=== PATIENT | female | born 1950 | race Caucasian/White ===

== ENCOUNTER 2016-11-01 11:05 | Inpatient (IN) | payer OTHER, MEDICAID ==
--- NOTE | 2016-11-01 11:25 | EDPHY ---
H & P Smoking Status: Never smoked Time Seen by Provider: 11/01/16 11:06 HPI/ROS: CHIEF COMPLAINT: Frequent falls, feeling weak , dizzy HISTORY OF PRESENT ILLNESS: 65-year-old female presents to the emergency department by ambulance after having 5 falls today. The patient has a history of multiple sclerosis however she is not taking a medication for this. She states that she felt very dizzy and weak today and has fallen multiple times. She states this is very abnormal for her. She is unsure if she hit her head. She complains of mild headache. She feels very dizzy and very tired. No reports of nausea or vomiting. No diarrhea. She states that she has been compliant with taking her medication. No fevers or chills. No chest pain or difficulty breathing. No other URI symptoms. REVIEW OF SYSTEMS: Constitutional: No fever, no chills. Eyes: No double or blurry vision. ENT: No sore throat. Respiratory: No cough, no shortness of breath. Cardiac: No chest pain. Gastrointestinal: No abdominal pain, vomiting or diarrhea. Genitourinary: No dysuria. Musculoskeletal: No neck or back pain. Skin: No rashes. Neurological: Mild headache (Tara Suarez) Past Medical/Surgical History: Multiple sclerosis, fibromyalgia, chronic pain on narcotics, hypothyroidism, anxiety, agoraphobia, PTSD, hospitalized 10/15/2016 with similar complaints of dehydration and weakness. (Tara Suarez) Social History: Single and lives alone (Tara Suarez) Physical Exam: General Appearance: Alert, no distress. 111/81, heart rate 109, respirations 14 , 97% on room air, temperature 36.8. No visible signs of trauma to her head. She points to the occiput of her scalp as her source of pain thinking this is where she hit her head. Eyes: Pupils equal and round. Extraocular motions are all intact. ENT: Mouth: Mucous membranes dry Respiratory: No wheezing, rhonchi, or rales, lungs are clear to auscultation. Cardiovascular: Regular rate and rhythm. Gastrointestinal: Abdomen is soft and nontender, no masses, no rebound or guarding, bowel sounds normal. Neurological: Alert and oriented x 3, cranial nerves II through XII grossly intact Skin: Warm and dry, no rashes. Musculoskeletal: Nontender to palpate along the cervical, thoracic or lumbar spine. Neck is supple. Extremities: Full range of motion and no peripheral edema. Her gait is not tested. Psychiatric: Patient is oriented X 3, there is no agitation. (Tara Suarez) Constitutional: Initial Vital Signs Temperature (C) 36.8 C 11/01/16 11:05 Heart Rate 109 H 11/01/16 11:05 Respiratory Rate 14 11/01/16 11:05 Blood Pressure 111/81 H 11/01/16 11:05 O2 Sat (%) 97 11/01/16 11:05 O2 Delivery Mode Room Air Allergies/Adverse Reactions: buspirone HCl [From BuSpar] Allergy (Mild, Verified 04/08/16 23:16) rash on chest morphine Allergy (Mild, Verified 04/08/16 23:16) legs/feet swell oxycodone [Oxycodone] Allergy (Mild, Verified 04/08/16 23:16) feet/legs swell propoxyphene HCl [From Darvon] Allergy (Mild, Verified 04/08/16 23:16) GI upset propranolol [Propranolol] Allergy (Mild, Verified 04/08/16 23:16) "headache and heart pounding" Sulfa (Sulfonamide Antibiotics) [Sulfa(Sulfonamide Antibiotics)] Allergy (Mild, Verified 04/08/16 23:16) GI upset ivp dye Allergy (Severe, Uncoded 04/08/16 23:16) rash/dyspnea Home Medications: Medication Instructions Recorded Benztropine Mesylate [Cogentin (*)] 1 mg PO BID 11/01/16 Clotrimazole 1% [Lotrimin 1%] 1 leonid TP BID 11/01/16 Fluconazole [Diflucan (*)] 150 mg PO DAILY 11/01/16 LORazepam [Ativan (*)] 0.5 mg PO QID PRN 11/01/16 Levothyroxine [Synthroid 88 mcg 88 mcg PO DAILY06 11/01/16 (*)] Nystatin [Nyamyc] 1 leonid TP BID 11/01/16 PARoxetine HCL [Paxil 20mg (*)] 20 mg PO DAILY 11/01/16 Tobramycin/Dexameth [Tobradex opht 1 - 2 drops EACHEYE Q4 11/01/16 drops (*)] ZOLPIDEM TARTRATE [Ambien CR 12.5 12.5 mg PO HS 11/01/16 mg] Ergocalciferol (Vitamin D2) 50,000 unit PO QS #8 capsule 11/02/16 [Vitamin D2] Medical Decision Making - Diagnostics EKG Interpretation: 12 lead EKG is interpreted in Trace master View by emergency department physician. It shows sinus rhythm with a rate of 99. There is right axis deviation. No acute ischemic changes. (Cathy Monge) ED Course/Re-evaluation: 65-year-old female presents to the emergency department with history of frequent falls. The patient manages her own medications. She has been falling frequently today. Laboratory studies are unremarkable. CT imaging of her brain is normal. I explained to the patient that it is possible that she is over medicating herself. She was admitted to the hospital just 2 weeks ago with similar complaints. She was evaluated by PT and OT at that time. She will have home health twice a week that will start next week. (Tara Suarez) Differential Diagnosis: Weakness including but not limited to electrolyte abnormality, depression, anxiety, CVA, spinal cord abnormality, and infectious causes. (Tara Suarez) Other Provider: The patient was evaluated and managed by the physician assistant men's soccer coach. I have reviewed this chart and I agree with the findings and plan of care as documented , as indicated by my signature. I am the secondary supervising physician. ( Cathy Monge) - Data Points Medications Given: Discontinued Medications Benztropine Mesylate (Cogentin) 1 mg PO BID SAM Stop: 04/30/17 20:59 Last Admin: 11/02/16 08:38 Dose: 1 mg Clotrimazole (Lotrimin 1%) 1 leonid TP BID SAM Stop: 12/01/16 20:59 Last Admin: 11/02/16 08:39 Dose: 1 leonid Sodium Chloride (Ns) 1,000 mls @ 0 mls/hr IV EDNOW ONE PRN Reason: Wide Open Stop: 11/01/16 11:46 Last Admin: 11/01/16 11:45 Dose: 1,000 mls Sodium Chloride (Ns) 1,000 mls @ 100 mls/hr IV CONT SAM Stop: 11/02/16 02:59 Last Admin: 11/02/16 02:07 Dose: 1,000 mls Levothyroxine Sodium (Synthroid) 88 mcg PO DAILY06 SAM Stop: 05/01/17 05:59 Last Admin: 11/02/16 04:46 Dose: 88 mcg Lorazepam (Ativan) 0.5 mg PO QID PRN PRN Reason: Anxiety Stop: 04/30/17 19:01 Last Admin: 11/01/16 21:25 Dose: 0.5 mg Nystatin (Mycostatin Powder) 1 leonid TP BID SAM Stop: 12/01/16 20:59 Last Admin: 11/02/16 08:39 Dose: 1 leonid Paroxetine HCl (Paxil) 20 mg PO DAILY SAM Stop: 05/01/17 08:59 Last Admin: 11/02/16 08:38 Dose: 20 mg Temazepam (Restoril) 15 mg PO HS PRN PRN Reason: Sleep/Insomnia Stop: 04/30/17 23:35 Last Admin: 11/01/16 23:50 Dose: 15 mg Tobramycin/Dexamethasone (Tobradex) 1 - 2 drops EACHEYE Q4 SAM Stop: 12/01/16 21:59 Last Admin: 11/02/16 10:50 Dose: 1 drop Zolpidem Tartrate (Ambien) 10 mg PO HS SAM Stop: 04/30/17 20:59 Last Admin: 11/01/16 21:15 Dose: 10 mg Departure - Departure Disposition: [facility] Acute Clinical Impression: Generalized weakness, History of multiple sclerosis, Frequent falls Condition: Fair
[2016-11-01 11:33] LABS: % IMMATURE GRANULYOCYTES 0.9 % (0.0-1.1); ABSOLUTE IMMATURE GRANULOCYTES 0.09 10^3/uL (0.00-0.10); ADD DIFF? NO; ADD MORPH? NO; ADD SCAN? NO; ATYPICAL LYMPHOCYTE FLAG 0 (0-99); FRAGMENT RBC FLAG 0 (0-99); HEMATOCRIT 36.7 % (38.0-47.0); HEMOGLOBIN 12.8 g/dL (12.6-16.3); LEFT SHIFT FLG 0 (0-99); LIPEMIA HEMOLYSIS FLAG 90 (0-99); MEAN CELL HEMOGLOBIN 30.3 pg (27.9-34.1); MEAN CELL HEMOGLOBIN CONCENTR. 34.9 g/dL (32.4-36.7); MEAN CELL VOLUME 86.8 fL (81.5-99.8); MEAN PLATELET VOLUME 8.5 fL (8.7-11.7); PLATELET CLUMPS FLAG 0 (0-99); PLATELET COUNT 231 10^3/uL (150-400); RED BLOOD CELL COUNT 4.23 10^6/uL (4.18-5.33)
--- NOTE | 2016-11-01 11:35 | CPEKG ---
Heart Rate: 99 RR Interval: 606 P-R Interval: 204 QRSD Interval: 80 QT Interval: 356 QTC Interval: 457 P Cope: 58 QRS Cope: 95 T Wave Cope: 45 EKG Severity - OTHERWISE NORMAL ECG - EKG Impression: SINUS RHYTHM EKG Impression: RIGHT AXIS DEVIATION Electronically Signed By: Cathy Monge 01-Nov-2016 15:21:06
[2016-11-01] MEDS ORDERED: NS 1,000 ML IV ONE (11:45)
[2016-11-01 11:47] LABS: ANION GAP 13 mEq/L (8-16); CALCIUM 8.9 mg/dL (8.5-10.4); CARBON DIOXIDE 24 mEq/l (22-31); CHLORIDE 100 mEq/L (97-110); CREATININE 1.1 mg/dL (0.6-1.0); GLOMERULAR FILTRATION RATE 50; GLUCOSE 104 mg/dL (70-100); POTASSIUM 4.1 mEq/L (3.5-5.2); SODIUM 137 mEq/L (134-144)
[2016-11-01 11:54] LABS: COLOR PALE YELLOW; LEUKOCYTE ESTERASE,URINE NEGATIVE (NEGATIVE); NITRITE,URINE NEGATIVE (NEGATIVE)
[2016-11-01 11:57] LABS: TROPONIN I < 0.012 ng/mL (0-0.034)
[2016-11-01 12:05] LABS: MUCUS TRACE /lpf (NONE-1+)
--- NOTE | 2016-11-01 13:03 | CT ---
CT Brain (Without Contrast) 1240 hours History: Head Trauma, hit back of head, on Plavix. Multiple sclerosis. Comparison: MRI brain March 2016. Technique: Axial computed tomographic images of the brain without contrast. Dose reduction techniques were utilized. Findings: Ventricles, cisterns, and sulci are widened consistent with atrophy. No hydrocephalus, mid line shift/herniation, or epidural/subdural hematomas. No acute intraparenchymal hemorrhage or mass e ffect. Cerebrovascular atherosclerosis. Hypodensities in the white matter of bilateral cerebral hemis pheres. Bone windows demonstrate no displaced fractures. Paranasal sinuses and mastoid air cells are clear. Impression: 1. Moderate atrophy. 2. No acute hemorrhage, hydrocephalus, or mass effect. 3. Cerebrovascular atherosclerosis. 4. No definite acute infarct. 5. Nonspecific white matter lesions which may represent multiple sclerosis or Microvascular ischemic gliosis. 6. No epidural or subdural hematoma. Findings and recommendations discussed with Emergency Department physician, Tara Suarez PA-C, at 1 255 hours today. Final report concurs with initial preliminary interpretation.
[2016-11-01] MEDS ORDERED: ONDANSETRON 4 MG/2 ML VIAL IVP PRN (13:53)
[2016-11-01] MEDS ORDERED: ACETAMINOPHEN 325 MG TAB PO PRN (13:53)
[2016-11-01] MEDS ORDERED: ONDANSETRON DISINTEGRATING 4 MG TAB PO PRN (13:53)
--- NOTE | 2016-11-01 16:09 | GHP ---
[f rep st] HISTORY AND PHYSICAL DATE OF ADMISSION: 11/01/2016 CHIEF COMPLAINT: Falls, weakness. PRIMARY PCP: Manuela De Oliveira MD, [facility]. HISTORY OF PRESENT ILLNESS: Patient is a 65-year-old female with history of multiple sclerosis, tremors and history of seizure disorder, presenting with 5 falls this morning. She attributes the falls due to progressive weakness over the last 3 weeks. During one of the falls, she tried to sit herself down and hit the back of her head against the wall. Her legs felt shaky and weak underneath her. She denies any prodromal symptoms of chest pain, shortness of breath, nausea, vomiting, or dizziness. She reports a tremor for the past 2 months. It initially started in her hands or feet and then encompassed her whole body. She is being followed by [facility], and they started her on a new medication. Unclear what this medication is, will contact her pharmacy. She actually thought the tremor was better this morning, and then had these falls. Had seizures diagnosed in February of 2015 and was on several medications, including Tegretol and Keppra. She was taken off these medications approximately 3-4 weeks ago, possibly due to causing the tremor. She has not had any seizures since that time. The patient was hospitalized October 15, 2016, for similar symptoms. At that time, a psychiatric consult was obtained, and she was started on Abilify and Paxil increased to 30 mg daily. There was consideration for inpatient psychiatry, but this was not recommended. She states that she has been having increased anxiety with recent hospitalization. REVIEW OF SYSTEMS: I completed a 10-point review of system. PAST MEDICAL HISTORY: 1. MS diagnosed in 1993, previously taking Copaxone. 2. Tremor for the past 2-3 months. 3. Seizure disorder, initially in February 2015, but has been off medications for 3- 4 weeks. 4. Major depression disorder with psychotic features. 5. Agoraphobia. 6. Post-traumatic stress disorder. 7. Hypothyroidism. SURGICAL HISTORY: She denies. SOCIAL HISTORY: Lives alone in an apartment with her dog here in [place]. Has friends but no family here. No illicit drugs or alcohol. MEDICATIONS: Pharmacy to reconcile. FAMILY HISTORY: Brother with diabetes. Father with an CO at age 47. Mom with lung cancer. ALLERGIES: Buspar, morphine, oxycodone, Darvon, propranolol, sulfas, IV contrast. PHYSICAL EXAMINATION: VITAL SIGNS: Temperature 36.8, blood pressure 111/81, heart rate 109, respiration 14, 97% on room air. GENERAL: Very fatigued appearing, soft-spoken. HEENT: PERRLA, EOMI. Oropharynx clear. NECK: No cervical lymphadenopathy. HEART: Regular rate and rhythm. No murmurs, gallops , or rubs. LUNGS: Clear to auscultation. ABDOMEN: Soft, nontender, nondistended. Positive bowel sounds. : No suprapubic or CVA tenderness. MUSCULOSKELETAL: 4/5 hip flexion and extension on left lower extremity. 5/5 upper left and right extremities. Normal sensation to light touch. Negative Babinski. A rest tremor of the upper extremities. PSYCH: Alert and oriented x3. Flat affect. LABS: WBCs 9, hemoglobin 12, hematocrit 37, platelets 231. Sodium 137, potassium 4.1, chloride 100, carbon dioxide 24, creatinine 1.1 (baseline 0.8 to 0.9), glucose 104. Troponin less than 0.012. TSH 9.0. EKG personally reviewed by me. Normal sinus rhythm. Right axis deviation. ST flattening in 3. CT head: Moderate atrophy. No acute hemorrhage, hydrocephalus or mass effect. Nonspecific white matter lesions which may represent multiple sclerosis or microvascular ischemic gliosis. ASSESSMENT/PLAN: 1. Multiple mechanical falls. This is likely multifactorial. Patient with underlying multiple sclerosis as well as decreased p.o. intake and suspected failure to thrive. She denies any prodromal symptoms to suggest a cardiac etiology. Troponin and EKG are negative. Will monitor on telemetry. Will have physical therapy and occupational therapy evaluate the patient. Will also have Neurology consult. Check B12, folate and vitamin D levels. 2. History of major depressive disorder with psychotic features. Continue Abilify and Paxil. 3. History of seizure disorder. This is per patient report. She is currently not on any medications. 4. Hypothyroidism. TSH has improved to 9. Would recheck in 2 more weeks and consider up titration. 5. Diet: Regular. 6. Deep vein thrombosis prophylaxis: SCDs. 7. Disposition: Patient warrants inpatient admission given recurrent falls, PT /OT and a Neurology evaluation. /[id number]/MODL MTDD
[2016-11-01] MEDS: NS 1,000 ML IV SCH (16:31)
[2016-11-01 17:04] LABS: FOLATE SERUM 12.9 ng/mL (2.80 - >20.00)
[2016-11-01] MEDS ORDERED: LORazepam 0.5 MG TAB PO PRN (19:02)
[2016-11-01] MEDS ORDERED: ZOLPIDEM TARTRATE 5 MG TAB PO SCH (21:00)
[2016-11-01] MEDS: BENZTROPINE MESYLATE 1 MG TAB PO SCH (21:15)
[2016-11-01] MEDS: TOBRAMYCIN/DEXAMETH 5 ML OPHT.BTL EACHEYE SCH (21:17)
[2016-11-01] MEDS: CLOTRIMAZOLE 1% 15 GM CRTUBE TP SCH (21:20)
[2016-11-01] MEDS: NYSTATIN POWDER 15 GM BTL TP SCH (21:22)
[2016-11-01] MEDS ORDERED: TEMAZEPAM 15 MG CAP PO PRN (23:36)
[2016-11-02] MEDS: NS 1,000 ML IV SCH (02:07)
[2016-11-02] MEDS: TOBRAMYCIN/DEXAMETH 5 ML OPHT.BTL EACHEYE SCH ×3 (02:08→10:50)
[2016-11-02 05:46] LABS: ANION GAP 10 mEq/L (8-16); CALCIUM 8.9 mg/dL (8.5-10.4); CARBON DIOXIDE 23 mEq/l (22-31); CHLORIDE 106 mEq/L (97-110); CREATININE 0.9 mg/dL (0.6-1.0); GLOMERULAR FILTRATION RATE > 60; GLUCOSE 97 mg/dL (70-100); POTASSIUM 4.1 mEq/L (3.5-5.2); SODIUM 139 mEq/L (134-144)
[2016-11-02] MEDS ORDERED: LEVOTHYROXINE 88 MCG TAB PO SCH (06:00)
[2016-11-02 08:24] VITALS: BP 115/73; RESP 16
[2016-11-02] MEDS: BENZTROPINE MESYLATE 1 MG TAB PO SCH (08:38)
[2016-11-02] MEDS: CLOTRIMAZOLE 1% 15 GM CRTUBE TP SCH (08:39)
[2016-11-02] MEDS: NYSTATIN POWDER 15 GM BTL TP SCH (08:39)
[2016-11-02] MEDS ORDERED: PARoxetine HCL 20 MG TAB PO SCH (09:00)
--- NOTE | 2016-11-02 09:59 | PDCONSULT ---
Fixture Maker Note: HOSPITAL NEUROLOGY CONSULT REQUESTING: Amanda Pinzon MD REASON: Falls HPI: This is a 65-year-old right-handed woman with a history of multiple sclerosis, fibromyalgia, anxiety and depression with agarophobia, PTSD who presented to our facility yesterday due to multiple falls. Patient is a marginal historian, but reports yesterday she was entertaining guests in her home. She generally uses a walker for ambulation assistance, but states that yesterday she had so much going on with entertaining her guests that she abandoned the walker for better mobility. She states that she subsequently had 5 falls. She cannot identify if there was any mechanical component to this. She does not think she was weak in the extremities. She identifies that she has had a tremor in the arms and legs for 2-3 months and states that she thinks the tremor has made her fall. She also thinks that she was moving around too quickly and this resulted in imbalance and falls. Otherwise, I do not get a good sense of the mechanism of her falls. ROS: As per the HPI, otherwise a complete 12 point ROS was performed and is negative ALLERGIES AND MEDS: As recorded in the EMR - reviewed and reconciled PFSH: As per the intake H&P by Dr. Pinzon from November 01, 2016 EXAM: GEN: thin woman laying in NAD HEENT: NCAT, sclera anicteric, conjunctiva not injected, MMM, oropharynx clear, no scalp tenderness NECK: supple, nontender, no meningismus CV: RRR s1 s2 wo m/r/c/g. Carotid pulses 2+ wo bruit NEURO: MS: awake, alert, oriented to all spheres. Speech nondysarthric. No language disturbance. Follows commands. Attends to both sides. Episodic memory impairment evident on casual conversation. Mood anxious. Adequate fund of knowledge. Poor insight. CN: pupils 3mm round and reactive. Fundi with sharp discs. VFF. Primary gaze centered. Full ocular motility with saccadic intrusion on smooth pursuit. Facial sensation preserved. Face symmetric. Palatoglossal movements intact. Shoulder shrug and head turn strong. MOTOR: reduced bulk, normal tone. Subtle fine postural tremor in all extremities, arms>legs without intention worsening. Full power throughout. SENSORY: intact LT/PP. No extinction. COORD: no ataxia FN/HS. Noe preserved. REFLEX: plantars down. No clonus. DTRS 2+/4. GAIT: rises unassisted. She has a cautious gait with her walker. On standing unassisted, tremor in the legs becomes quite apparent. On unloading her weight on the walker, the tremor resolves. DATA: Labs reviewed in EMR CT head wo from 11/01/16 reviewed - global volume loss, periventricular hypodensities consistent with her history of MS and/or chronic microvascular ischemic changes. Nothing acute. IMPRESSION AND RECOMMENDATIONS: // FALLS // ORTHOSTATIC TREMOR Patient presents with multiple falls of unclear origin, though, given the scant history they may be from her abandoning her walker. She does have an orthostatic tremor in the legs, which can cause negative myoclonus and falls. I would advise she continue to use her walker 100% of the time with ambulation, as unloading her weight on the walker can resolve the tremor. In the event the tremor continues to be a problem, low dose levetiracetam or low dose clonazepam can improve the tremors, as well. She can followup in our clinic as previously recommended and followup with her home care providers.
[2016-11-02 11:30] VITALS: PULSE 101; TEMP 98.6; O2SAT 93
--- NOTE | 2016-11-02 13:39 | PDIAF ---
- Diagnosis Code Status: Full Code - Medication Management Discharge Medications: Medications to Continue on Transfer Benztropine Mesylate [Cogentin (*)] 1 mg PO BID 11/01/16 [Last Taken Unknown] Clotrimazole 1% [Lotrimin 1%] 1 leonid TP BID 11/01/16 [Last Taken Unknown] Fluconazole [Diflucan (*)] 150 mg PO DAILY 11/01/16 [Last Taken Unknown] LORazepam [Ativan (*)] 0.5 mg PO QID PRN 11/01/16 [Last Taken Unknown] Levothyroxine [Synthroid 88 mcg (*)] 88 mcg PO DAILY06 11/01/16 [Last Taken 08/08] Nystatin [Nyamyc] 1 leonid TP BID 11/01/16 [Last Taken Unknown] PARoxetine HCL [Paxil 20mg (*)] 20 mg PO DAILY 11/01/16 [Last Taken Unknown] Tobramycin/Dexameth [Tobradex opht drops (*)] 1 - 2 drops EACHEYE Q4 11/01/16 [ Last Taken Unknown] ZOLPIDEM TARTRATE [Ambien CR 12.5 mg] 12.5 mg PO HS 11/01/16 [Last Taken Unknown ] Discharge Medications: Refer to the Discharge Home Medication list for PRN reason. - Orders Services needed: Home Care, Registered Nurse, Certified Typewriter Assembler Home Care Face to Face: I certify that this patient was under my care and that I had the required [id number] encounter meeting the encounter requirements on the discharge day. My findings support the fact that the patient is homebound as defined in CMS Chapter 7 Medicare Benefits Manual 30.1.1, The condition of the patient is such that there exists a normal inability to leave home and consequently, leaving home would require a considerable and taxing effort. - Follow Up Care Current Providers and Referrals: IN STATE,. [Primary Care Provider] - Carmine Hernandez DO [Doctor of Osteopathy] -
--- NOTE | 2016-11-02 14:27 | PDIAF ---
- Diagnosis Code Status: Full Code - Medication Management Discharge Medications: Medications to Continue on Transfer Benztropine Mesylate [Cogentin (*)] 1 mg PO BID 11/01/16 [Last Taken Unknown] Clotrimazole 1% [Lotrimin 1%] 1 leonid TP BID 11/01/16 [Last Taken Unknown] Fluconazole [Diflucan (*)] 150 mg PO DAILY 11/01/16 [Last Taken Unknown] LORazepam [Ativan (*)] 0.5 mg PO QID PRN 11/01/16 [Last Taken Unknown] Levothyroxine [Synthroid 88 mcg (*)] 88 mcg PO DAILY06 11/01/16 [Last Taken 08/08] Nystatin [Nyamyc] 1 leonid TP BID 11/01/16 [Last Taken Unknown] PARoxetine HCL [Paxil 20mg (*)] 20 mg PO DAILY 11/01/16 [Last Taken Unknown] Tobramycin/Dexameth [Tobradex opht drops (*)] 1 - 2 drops EACHEYE Q4 11/01/16 [ Last Taken Unknown] ZOLPIDEM TARTRATE [Ambien CR 12.5 mg] 12.5 mg PO HS 11/01/16 [Last Taken Unknown ] Ergocalciferol (Vitamin D2) [Vitamin D2] 50,000 unit PO QS #8 capsule 11/02/16 [ Last Taken Unknown] Discharge Medications: Refer to the Discharge Home Medication list for PRN reason. - Orders Services needed: Home Care, Registered Nurse (med management), Certified Water Resource Engineering Specialist (ADLs assistance, 1-2 x daily, you can assess needs), Physical Therapy, Occupational Therapy Home Care Face to Face: I certify that this patient was under my care and that I had the required [id number] encounter meeting the encounter requirements on the discharge day. My findings support the fact that the patient is homebound as defined in CMS Chapter 7 Medicare Benefits Manual 30.1.1, The condition of the patient is such that there exists a normal inability to leave home and consequently, leaving home would require a considerable and taxing effort. Diet Texture: Regular Texture Diet - Follow Up Care Current Providers and Referrals: IN STATE,. [Primary Care Provider] - Carmine Hernandez DO [Doctor of Osteopathy] -
--- NOTE | 2016-11-02 14:27 | PDIAF ---
- Diagnosis Code Status: Full Code - Medication Management Discharge Medications: Medications to Continue on Transfer Benztropine Mesylate [Cogentin (*)] 1 mg PO BID 11/01/16 [Last Taken Unknown] Clotrimazole 1% [Lotrimin 1%] 1 leonid TP BID 11/01/16 [Last Taken Unknown] Fluconazole [Diflucan (*)] 150 mg PO DAILY 11/01/16 [Last Taken Unknown] LORazepam [Ativan (*)] 0.5 mg PO QID PRN 11/01/16 [Last Taken Unknown] Levothyroxine [Synthroid 88 mcg (*)] 88 mcg PO DAILY06 11/01/16 [Last Taken 08/08] Nystatin [Nyamyc] 1 leonid TP BID 11/01/16 [Last Taken Unknown] PARoxetine HCL [Paxil 20mg (*)] 20 mg PO DAILY 11/01/16 [Last Taken Unknown] Tobramycin/Dexameth [Tobradex opht drops (*)] 1 - 2 drops EACHEYE Q4 11/01/16 [ Last Taken Unknown] ZOLPIDEM TARTRATE [Ambien CR 12.5 mg] 12.5 mg PO HS 11/01/16 [Last Taken Unknown ] Ergocalciferol (Vitamin D2) [Vitamin D2] 50,000 unit PO QS #8 capsule 11/02/16 [ Last Taken Unknown] Discharge Medications: Refer to the Discharge Home Medication list for PRN reason. - Orders Services needed: Home Care, Registered Nurse (med management), Certified Microelectronics Engineer (ADLs assistance, 1-2 x daily, you can assess needs), Physical Therapy Home Care Face to Face: I certify that this patient was under my care and that I had the required [id number] encounter meeting the encounter requirements on the discharge day. My findings support the fact that the patient is homebound as defined in CMS Chapter 7 Medicare Benefits Manual 30.1.1, The condition of the patient is such that there exists a normal inability to leave home and consequently, leaving home would require a considerable and taxing effort. Diet Texture: Regular Texture Diet - Follow Up Care Current Providers and Referrals: [place] STATE,. [Primary Care Provider] - Carmine Hernandez DO [Doctor of Osteopathy] -
--- NOTE | 2016-11-02 14:33 | GDS ---
[f rep st] DISCHARGE SUMMARY DISCHARGE DIAGNOSES: 1. Multiple sclerosis. 2. Fibromyalgia. 3. Anxiety. 4. Depression. 5. Agoraphobia. 6. Posttraumatic stress disorder. 7. Mechanical falls. 8. Vitamin D deficiency. 9. Orthostatic tremor. 10. History of seizure disorder diagnosed February 2015. 11. Hypothyroidism. HPI: Patient is a 65-year-old female with history of multiple sclerosis, tremors, and history of sei zure disorder, presented with 5 mechanical falls day of admission. She attributes the falls due to p rogressive weakness over the last 3 weeks. She states that she is almost 100% compliant with her wal ker, but during 1 of falls yesterday she tried to sit herself down and hit the back of her head again st the wall. Her legs felt shaking and weak underneath her. She denied any prodromal symptoms of ch est pain, shortness of breath, nausea vomiting, or dizziness. She reports tremor for the past 2 months, initially starting in her hands and feet, then encompassed her whole body. She is being followed by [facility]. She actually felt the tremor was be tter the morning of admission, but then had these falls. She had been on several medications for sei zures diagnosed in february 2015, including Tegretol and Keppra, but these were discontinued over the pas t month thought to causing her tremor. She has not had any seizures since February of 2015. Patient was hospitalized October 15 for similar symptoms. At that time, a psychiatric consult was obtained. She was started on Abilify and Paxil. There was a consideration for inpatient psychiatr y, but this was not recommended. HOSPITAL COURSE BY PROBLEM: 1. Mechanical falls: This is likely secondary to orthostatic tremor and not being compliant with h er walker 100% of the time. Appreciate Neurology consult. They will see her in clinic. If orthosta tic tremor is persistent, they can try low-dose Keppra or clonazepam as these can improve symptoms. Patient was evaluated by PT/OT, who recommended home care. She will have both home care and home car e-based services. I did express my concern to the patient going home alone however, she was adamant and stated that she wanted to go home, so she will discharge. 2. Multiple sclerosis: Has been off medications for several years. 3. Hypothyroidism: Her levothyroxine was recently uptitrated to 88 mcg 2 weeks ago. There has been improvement and TSH is now 9. Would recommend repeat in 2 weeks and then likely adjust at that time . 4. Vitamin D deficiency: Level was 17. I started her on ergocalciferol weekly. This should be repe ated in 1-2 months. 5. Anxiety/depression: Continue home medications. DISPOSITION: Patient is stable for discharge. FOLLOWUP: 1. Manuela De Oliveira. 2. Repeat TSH in 2-4 weeks. 3. Vitamin D level in 1 month. 4. Follow up with her psychologist. 5. Establish care with Dr. Hernandez in Neurology [facility]. /[id number]/MODL
== END 2016-11-02 15:59 | disposition home health service (06) | DRG 92 ==
LOC: EDUNIT# → OBSVTOIN 13:53 → F3E 15:05
PROVIDERS: ADMIT Internal Medicine; ATTEND Internal Medicine
DX: G25.1 Drug-induced tremor (principal); G25.3 Myoclonus; R29.6 Repeated falls; T42.5X5 Adverse effect of mixed antiepileptics; Z91.19 Patient's noncompliance with other medical treatment and regimen; G35 Multiple sclerosis; F40.00 Agoraphobia, unspecified; F43.10 Post-traumatic stress disorder, unspecified; F33.9 Major depressive disorder, recurrent, unspecified; F41.9 Anxiety disorder, unspecified; E03.9 Hypothyroidism, unspecified; E55.9 Vitamin D deficiency, unspecified; G40.909 Epilepsy, unspecified, not intractable, without status epilepticus
CPT/HCPCS: 82607-90; 97161-GP; 97166-GO; G8978-GP-CJ; G8979-GP-CI; G8987-GO-CI; G8988-GO-CI

== ENCOUNTER 2016-11-30 13:21 | Inpatient (IN) | payer OTHER, MEDICAID ==
--- NOTE | 2016-11-30 14:04 | EDPHY ---
H & P Stated Complaint: conmfusion Time Seen by Provider: 11/30/16 13:28 HPI/ROS: CHIEF COMPLAINT: Fall, confusion HISTORY OF PRESENT ILLNESS: This is a 65-year-old female with history of multiple sclerosis, fibromyalgia, hypothyroidism, major depression, seizure disorder, an agraphobia who presents via EMS after a fall this morning. On my history the patient reports that she fell and that she has been feeling quite poorly today with generalized nausea and fatigue. Patient was admitted to the hospital in November 01 after having multiple falls. At that time she was discharged home with home health assistance. She tells me that this is her 1st fall since her prior admission. She reports a mechanical fall, tripping over a toy a that the neighbors child had. However, the patient is very hesitant in her history and it is unclear to me how reliable this history is. She denies any fevers or chills. She denies chest pain, shortness of breath, palpitations , vomiting, diarrhea. She does report urinary hesitancy as well as incontinence. Reports a mild headache. States she struck her right elbow when she fell and was able to get up and ambulate afterwards. Patient arrived via EMS. Per EMS she was oriented to 1 on their initial contact. Review of systems is limited secondary to the patient's clinical condition, somewhat altered mental status. PAST MEDICAL HISTORY: Multiple sclerosis, tremor, seizure disorder, major depression, agoraphobia, hypothyroidism SOCIAL HISTORY: Patient is currently living in her apartment. There is no family in the area. VITAL SIGNS Reviewed by me. GENERAL: Thin, well cared for. Resting comfortably. Dry mucous membranes and complains of a dry mouth. HEENT: Atraumatic. Eyes: No icterus, no injection. LAMAR, EOMI, no nystagmus. Mouth: Dry lips, dry mucous membranes. No erythema or lesions. Neck: supple with no adenopathy. Reports some tenderness diffusely on palpation. LUNGS: Clear to auscultation bilaterally, no wheezes, rhonchi or rales. CARDIAC: Regular rate and rhythm, no rubs, murmurs or gallops. ABDOMEN: Soft, nontender, nondistended, bowel sounds normal. BACK: No CVA tenderness. EXTREMITIES: No edema. Range of motion is normal throughout. I see no trauma on the right elbow. Bilateral knees have superficial abrasions. NEURO: Alert and oriented, oriented to person, place, believes it is December, and Jeffrey Savage is president. Occasionally answers questions inappropriately. Cranial nerves 2-12 are intact. Motor strength 5/5 throughout. Sensation intact to light touch. SKIN: Warm and dry, no rash. PSYCHIATRIC: No agitation. - Personal History Current Tetanus/Diphtheria Vaccine: Unsure Current Tetanus Diphtheria and Acellular Pertussis (TDAP): Unsure Tetanus Vaccine Date: 2014 - Medical/Surgical History Hx Asthma: Yes Hx Chronic Respiratory Disease: No Hx Diabetes: No Hx Cardiac Disease: No Hx Renal Disease: No Hx Cirrhosis: No Hx Alcoholism: No Hx HIV/AIDS: No Hx Splenectomy or Spleen Trauma: No Other PMH: fibromyalgia, MS, ibs; depression; anxiety; hypothyhroidism; ptsd; acid reflux; rhinitis, urine incontinence, seizure - Social History Smoking Status: Never smoked Constitutional: Initial Vital Signs Temperature (C) 36.9 C 11/30/16 13:24 Heart Rate 101 H 11/30/16 13:24 Respiratory Rate 20 11/30/16 13:24 Blood Pressure 153/74 H 11/30/16 13:24 O2 Sat (%) 98 11/30/16 13:24 O2 Delivery Mode Room Air Allergies/Adverse Reactions: buspirone HCl [From BuSpar] Allergy (Mild, Verified 04/08/16 23:16) rash on chest morphine Allergy (Mild, Verified 04/08/16 23:16) legs/feet swell oxycodone [Oxycodone] Allergy (Mild, Verified 04/08/16 23:16) feet/legs swell propoxyphene HCl [From Darvon] Allergy (Mild, Verified 04/08/16 23:16) GI upset propranolol [Propranolol] Allergy (Mild, Verified 04/08/16 23:16) "headache and heart pounding" Sulfa (Sulfonamide Antibiotics) [Sulfa(Sulfonamide Antibiotics)] Allergy (Mild, Verified 04/08/16 23:16) GI upset ivp dye Allergy (Severe, Uncoded 04/08/16 23:16) rash/dyspnea Home Medications: Medication Instructions Recorded Benztropine Mesylate [Cogentin (*)] 1 mg PO BID 11/01/16 Clotrimazole 1% [Lotrimin 1%] 1 leonid TP BID 11/01/16 Fluconazole [Diflucan (*)] 150 mg PO DAILY 11/01/16 LORazepam [Ativan (*)] 0.5 mg PO QID PRN 11/01/16 Nystatin [Nyamyc] 1 leonid TP BID 11/01/16 PARoxetine HCL [Paxil 20mg (*)] 20 mg PO DAILY 11/01/16 Tobramycin/Dexameth [Tobradex opht 1 - 2 drops EACHEYE Q4 11/01/16 drops (*)] ZOLPIDEM TARTRATE [Ambien CR 12.5 12.5 mg PO HS 11/01/16 mg] ARIPiprazole [Abilify 2 mg (*)] 2 mg PO DAILY 11/30/16 Acetaminophen [Tylenol ES 500 mg 1,000 mg PO Q4H PRN 11/30/16 (*)] FEXOFENADINE HCL 180 mg PO DAILY PRN 11/30/16 Herbals/Supplements -Info Only 1 ea PO DAILY 11/30/16 Ibuprofen [Motrin (*)] 400 mg PO Q4H PRN 11/30/16 Levothyroxine Sodium 75 mcg PO DAILY 11/30/16 [Levothyroxine Sodium] Psyllium Husk [Metamucil] 2 cap PO BID 11/30/16 Sennosides/Docusate Sodium 2 each PO BID 11/30/16 [SENEXON-S TABLET] traMADol [Ultram 50 mg (*)] 50 mg PO Q8H PRN 11/30/16 traZODone [traZODONE 100MG (*)] 100 mg PO HS 11/30/16 Medical Decision Making - Diagnostics EKG Interpretation: 12-LEAD EKG: Please see the full report in [facility]. My interpretation: Sinus tachycardia Imaging: Results: CT scan of the head was obtained. I viewed the images independently on the PACS system. I discussed the results of the study with the radiologist. Impression: No acute findings. Please see the full radiology report. ED Course/Re-evaluation: 65-year-old female presenting with a somewhat unclear history. She fell fell at home today. She was confused on paramedics arrival. Although the patient was oriented to 3 on my examination. However, she has inappropriate behavior in the emergency department including urinating between the toilet in the bathroom wall. No clear cause of the patient's altered mental status, fatigue, and weakness is diagnosis emergency department evaluation. Of note, patient's TSH has decreased to less than 0.015. November 01 patient's TSH was 9. Patient will be admitted to the hospitalist service. At the current time I do not believe she is safe to be discharged home and and concerned that she may need a higher level of care than she currently has at her home. Patient was evaluated in the emergency department by Dr. Grey Parada. Please see his note. [facility] med [facility]. Differential Diagnosis: After the history was obtained and physical exam performed, the following differential for the patient's altered mental status and weakness was considered included but was not limited to hypoglycemia, electrolyte disturbances, occult infection, intercranial hemorrhage, tumor, drug or alcohol intoxication, stroke, or TIA. Consult/Admit Bed Type: Dr. Parada, med surg - Data Points Laboratory Results: Laboratory Results 11/30/16 13:50 11/30/16 13:50 11/30/16 11/30/16 16:10 13:50 WBC 5.02 10^3/uL (3.80-9.50) RBC 4.05 L 10^6/uL (4.18-5.33) Hgb 12.0 L g/dL (12.6-16.3) Hct 35.6 L % (38.0-47.0) MCV 87.9 fL (81.5-99.8) MCH 29.6 pg (27.9-34.1) MCHC 33.7 g/dL (32.4-36.7) RDW 13.0 % (11.5-15.2) Plt Count 216 10^3/uL (150-400) MPV 8.5 L fL (8.7-11.7) Neut % (Auto) 69.9 % (39.3-74.2) Lymph % (Auto) 23.5 % (15.0-45.0) [place] % (Auto) 5.6 % (4.5-13.0) Eos % (Auto) 0.2 L % (0.6-7.6) Baso % (Auto) 0.4 % (0.3-1.7) Nucleat RBC Rel Count 0.0 % (0.0-0.2) Absolute Neuts (auto) 3.51 10^3/uL (1.70-6.50) Absolute Lymphs (auto) 1.18 10^3/uL (1.00-3.00) Absolute Monos (auto) 0.28 L 10^3/uL (0.30-0.80) Absolute Eos (auto) 0.01 L 10^3/uL (0.03-0.40) Absolute Basos (auto) 0.02 10^3/uL (0.02-0.10) Absolute Nucleated RBC 0.00 10^3/uL (0-0.01) Immature Gran % 0.4 % (0.0-1.1) Immature Gran # 0.02 10^3/uL (0.00-0.10) Sodium 136 mEq/L (134-144) Potassium 3.8 mEq/L (3.5-5.2) Chloride 100 mEq/L (97-110) Carbon Dioxide 21 L mEq/l (22-31) Anion Gap 15 mEq/L (8-16) BUN 15 mg/dL (7-23) Creatinine 0.8 mg/dL (0.6-1.0) Estimated GFR > 60 Glucose 103 H mg/dL (70-100) Calcium 9.3 mg/dL (8.5-10.4) Total Bilirubin 0.7 mg/dL (0.1-1.4) Conjugated Bilirubin 0.5 mg/dL (0.0-0.5) Unconjugated Bilirubin 0.2 mg/dL (0.0-1.1) AST 23 IU/L (14-46) ALT 28 IU/L (9-52) Alkaline Phosphatase 63 IU/L (38-126) Troponin I < 0.012 ng/mL (0-0.034) Total Protein 7.0 g/dL (6.3-8.2) Albumin 4.0 g/dL (3.5-5.0) Lipase 62.0 IU/L (23-300) TSH < 0.015 L uIU/mL (0.465-4.680) Free T4 3.67 H ng/dL (0.59-2.19) Free T3 4.58 pg/mL (2.77-5.27) Urine Color PALE YELLOW Urine Appearance CLEAR Urine pH 5.0 (5.0-7.5) Ur Specific [place] 1.005 (1.002-1.030) Urine Protein NEGATIVE (NEGATIVE) Urine Ketones 1+ H (NEGATIVE) Urine Blood 1+ H (NEGATIVE) Urine Nitrate NEGATIVE (NEGATIVE) Urine Bilirubin NEGATIVE (NEGATIVE) Urine Urobilinogen NEGATIVE EU (0.2-1.0) Ur Leukocyte Esterase NEGATIVE (NEGATIVE) Urine RBC 1-3 /hpf (0-3) Urine WBC 1-3 /hpf (0-3) Ur Epithelial Cells TRACE /lpf (NONE-1+) Urine Mucus TRACE /lpf (NONE-1+) Ur Culture Indicated? NOT INDICATED (NI) Urine Glucose NEGATIVE (NEGATIVE) Medications Given: Discontinued Medications Sodium Chloride (Ns) 1,000 mls @ 0 mls/hr IV ONCE ONE PRN Reason: Wide Open Stop: 11/30/16 15:03 Last Admin: 11/30/16 14:00 Dose: 1,000 mls Departure - Departure Disposition: [facility] Inpatient Acute Clinical Impression: History of falling, Hyperthyroidism determined by thyroid function test Altered mental status, unspecified Qualifiers: Altered mental status type: disorientation Qualifier Code: (R41.0) Disorientation, unspecified Condition: Fair
[2016-11-30 14:30] LABS: % IMMATURE GRANULYOCYTES 0.4 % (0.0-1.1); ABSOLUTE IMMATURE GRANULOCYTES 0.02 10^3/uL (0.00-0.10); ADD DIFF? NO; ADD MORPH? NO; ADD SCAN? NO; ATYPICAL LYMPHOCYTE FLAG 10 (0-99); FRAGMENT RBC FLAG 0 (0-99); HEMATOCRIT 35.6 % (38.0-47.0); LEFT SHIFT FLG 0 (0-99); LIPEMIA HEMOLYSIS FLAG 80 (0-99); MEAN CELL HEMOGLOBIN 29.6 pg (27.9-34.1); MEAN CELL HEMOGLOBIN CONCENTR. 33.7 g/dL (32.4-36.7); MEAN CELL VOLUME 87.9 fL (81.5-99.8); MEAN PLATELET VOLUME 8.5 fL (8.7-11.7); PLATELET CLUMPS FLAG 0 (0-99); PLATELET COUNT 216 10^3/uL (150-400); RED BLOOD CELL COUNT 4.05 10^6/uL (4.18-5.33)
[2016-11-30 14:45] LABS: ALANINE AMINOTRANSFERASE 28 IU/L (9-52); ALKALINE PHOSPHATASE 63 IU/L (38-126); ANION GAP 15 mEq/L (8-16); ASPARTATE AMINOTRANSFERASE 23 IU/L (14-46); BILIRUBIN,TOTAL 0.7 mg/dL (0.1-1.4); BILIRUBIN-CONJUGATED 0.5 mg/dL (0.0-0.5); BILIRUBIN-UNCONJUGATED 0.2 mg/dL (0.0-1.1); CALCIUM 9.3 mg/dL (8.5-10.4); CARBON DIOXIDE 21 mEq/l (22-31); CHLORIDE 100 mEq/L (97-110); CREATININE 0.8 mg/dL (0.6-1.0); GLOMERULAR FILTRATION RATE > 60; GLUCOSE 103 mg/dL (70-100); POTASSIUM 3.8 mEq/L (3.5-5.2); SODIUM 136 mEq/L (134-144)
[2016-11-30 14:55] LABS: TROPONIN I < 0.012 ng/mL (0-0.034)
--- NOTE | 2016-11-30 14:59 | CPEKG ---
Heart Rate: 103 RR Interval: 583 P-R Interval: 196 QRSD Interval: 84 QT Interval: 352 QTC Interval: 461 P [place]: 74 QRS [place]: 65 T Wave [place]: 43 EKG Severity - OTHERWISE NORMAL ECG - EKG Impression: SINUS TACHYCARDIA Electronically Signed By: Laurent Varela 01-Dec-2016 09:08:58
[2016-11-30] MEDS ORDERED: NS 1,000 ML IV ONE (15:02)
[2016-11-30 16:18] LABS: COLOR PALE YELLOW; LEUKOCYTE ESTERASE,URINE NEGATIVE (NEGATIVE); NITRITE,URINE NEGATIVE (NEGATIVE)
[2016-11-30 16:23] LABS: MUCUS TRACE /lpf (NONE-1+)
--- NOTE | 2016-11-30 16:35 | CT ---
CT Head (Without Contrast) 3:03 p.m. Indication: Fall. Headache.. Comparison: Noncontrast head CT dated November 01, 2016. Technique: Standard noncontrast head CT protocol utilizing 5-mm thick collimated slices and field of view of 23 cm. Dose reduction techniques were utilized. Findings: No acute intracranial hemorrhage or swelling. Atrophy and mild low attenuation periventric ular white matter disease in the frontal and parietal lobes is unchanged since October 2016. No acute fracture. The paranasal sinuses are clear. Craft-white interfaces are preserved. No evidence of acute ischemia. Impression: 1. Negative. No acute intracranial hemorrhage or fracture. 2. Atrophy and white matter disease are unchanged since 4 weeks prior. Findings discussed with Emergency Department physician, Dr. Roxanne Craven, at 4:15 p.m, on November.
[2016-11-30] MEDS ORDERED: ONDANSETRON DISINTEGRATING 4 MG TAB PO PRN (17:25)
[2016-11-30] MEDS ORDERED: ONDANSETRON 4 MG/2 ML VIAL IVP PRN (17:25)
[2016-11-30] MEDS ORDERED: LORazepam 1 MG TAB PO PRN (17:27)
[2016-11-30] MEDS ORDERED: LORazepam 2 MG/ML INJ IVP PRN (17:27)
[2016-11-30] MEDS ORDERED: HALOPERIDOL 2 MG TAB PO PRN (17:28)
[2016-11-30] MEDS ORDERED: traMADol 50 MG TAB PO PRN (17:45)
[2016-11-30] MEDS ORDERED: NON-FORMULARY NEW DRUG (Fexofenadine Hcl [Fexofenadine Hcl] 180 MG) PO PRN (17:45)
[2016-11-30] MEDS ORDERED: CETIRIZINE 10 MG TAB PO PRN (18:19)
[2016-11-30] MEDS: NS 1,000 ML IV SCH (18:24)
--- NOTE | 2016-11-30 18:51 | GHP ---
[f rep st] HISTORY AND PHYSICAL DATE OF ADMISSION: 11/30/2016 DATE OF EVALUATION: 11/30/2016 CHIEF COMPLAINT: Fall and confusion. HISTORY OF PRESENT ILLNESS: This is a 65-year-old female with multiple admissions here for various d iagnoses, including failure to thrive and encephalopathy. She had been discharged to a [facility] facility on one admission, discharged to home on her last admission. She has refused SNF pl acement in the past as well. She was brought into the emergency department by EMS after a fall this morning. She gives me a completely different history. Tells me that she has been her overnight, has been evaluated by various physicians. She is asking to be discharged to her apartment. Per the emergency department report, she had a mechanical fall today. Per EMS, she was A and O x1 wh en they initially evaluated her. She is since alert and oriented x3. Review of systems is relativel y negative, though notable for urinary frequency. I called her brother, left him a message to call back leaving the office number here. She had reques danica that I speak with him to get additional information. She tells me that he is in town to try and help her out given many recent issues. PAST MEDICAL HISTORY: 1. Multiple sclerosis. 2. Seizure disorder. 3. Major depressive disorder. 4. Agoraphobia. 5. Hypothyroidism. 6. Essential tremor. 7. PTSD. 8. Fibromyalgia. 9. Depression. MEDICATIONS: Please see medication reconciliation. ALLERGIES: Buspirone, morphine, oxycodone, propoxyphene sulfa, IV dye. SOCIAL HISTORY: She lives in an apartment. She tells me that her brother has recently come to [employer] to help her out. She gave me permission to speak with him. FAMILY HISTORY: Noncontributory. REVIEW OF SYSTEMS: A 10-point review of systems is conducted and is negative, except per the HPI. PHYSICAL EXAMINATION: VITAL SIGNS: Blood pressure is 158/73, heart rate 118, respiration rate 18, s aturating 96% on room air, temperature is 36.7. GENERAL: The patient is an anxious-appearing female who has bilateral upper extremity fine tremors. HEENT: Shows her to be normocephalic, atraumatic. CARDIOVASCULAR: Shows her to be tachycardic. She has a 2/6 systolic murmur. She has no rubs or ga llops. PULMONARY: Shows her lungs to be clear to auscultation bilaterally. She is not in any respi ratory distress. ABDOMEN: Soft, nontender, nondistended. SKIN: Shows no rash. : Shows no Fole y. NEUROLOGIC: Shows her to be alert and oriented x3. She has a tremor. It is bilateral. Mostly bilateral fine tremor in her upper extremities. Otherwise, she has a nonfocal neurologic exam. PSYC HIATRIC: Shows her to be anxious. LABS: Basic metabolic panel shows a bicarbonate of 21, TSH is undetectable, free T4 is 3.67. Urinal ysis shows 1+ ketones and 1+ blood. I discussed this with Dr. Craven in the emergency department. We will plan to admit to med/surg. IMAGING: I reviewed her head CT scan, which was negative for intracranial hemorrhage or fracture. I t does show atrophy and white matter disease, which is unchanged. EKG, which I personally reviewed a nd interpreted, shows sinus tachycardia. There is nothing acute. No T-wave inversions. No ST [place] es. IMPRESSION AND PLAN: This is a 65-year-old female with a history of psychiatric disorder as well as hypothyroid, presents with altered mental status. 1. Acute encephalopathy. Her speech is somewhat tangential. I am not sure if she is delusional fro m psychiatric reasons or other. She has an undetectable TSH with a mildly elevated free T3. Certain ly this may be contributing to her altered mental status. She has been admitted to psychiatric facil ities in the past. I have spoke with [facility], ordered a psychiatric evaluation. For now, will continue her home medications. Will hold her Synthroid. Follow her TSH and free T3 and T4 in the morning. C ase Management will need to be involved as well. I have placed a call to her brother and left him a message. He may be able to provide some additional insight. 2. Iatrogenic hyperthyroid. As above. 3. Multiple sclerosis. I believe that she is at her baseline. I do not think Neurology needs to be involved at this point, but will involve them if necessary. 4. Chronic psychiatric disorders, including post-traumatic stress disorder, agoraphobia, and depress ion. Will continue her home medicines, including Abilify, Ambien, Paxil, and Ativan as needed. 5. Code status. I did not discuss this with her given her severe anxiety. I will make her empirica lly full code at this time. 6. Venous thromboembolism risk. She is moderate to high. Will give her prophylactic Lovenox. /[id number]/MODL
[2016-11-30] MEDS: TOBRAMYCIN/DEXAMETH 5 ML OPHT.BTL EACHEYE SCH ×2 (19:36→21:39)
[2016-11-30] MEDS ORDERED: ZOLPIDEM TARTRATE 12.5 MG PO SCH (21:00)
[2016-11-30] MEDS ORDERED: BENZTROPINE MESYLATE 2 MG TAB PO SCH (21:00)
[2016-11-30] MEDS: SENNOSIDES/DOCUSATE SODIUM TAB PO SCH (21:37)
[2016-11-30] MEDS: PSYLLIUM HUSK PO SCH (21:38)
[2016-11-30] MEDS: traZODone 100 MG TAB PO SCH (21:38)
[2016-11-30] MEDS: BENZTROPINE MESYLATE 1 MG TAB PO SCH (21:38)
[2016-11-30] MEDS: LORazepam 0.5 MG TAB PO PRN (21:38)
[2016-11-30] MEDS: NYSTATIN POWDER 15 GM BTL TP SCH (21:46)
[2016-11-30] MEDS: CLOTRIMAZOLE 1% 15 GM CRTUBE TP SCH (21:47)
[2016-12-01] MEDS: TOBRAMYCIN/DEXAMETH 5 ML OPHT.BTL EACHEYE SCH ×6 (02:02→21:24)
[2016-12-01 05:42] LABS: % IMMATURE GRANULYOCYTES 0.2 % (0.0-1.1); ABSOLUTE IMMATURE GRANULOCYTES 0.01 10^3/uL (0.00-0.10); ADD DIFF? NO; ADD MORPH? NO; ADD SCAN? NO; ATYPICAL LYMPHOCYTE FLAG 10 (0-99); FRAGMENT RBC FLAG 0 (0-99); HEMATOCRIT 31.6 % (38.0-47.0); HEMOGLOBIN 10.8 g/dL (12.6-16.3); LEFT SHIFT FLG 0 (0-99); LIPEMIA HEMOLYSIS FLAG 90 (0-99); MEAN CELL HEMOGLOBIN 30.9 pg (27.9-34.1); MEAN CELL HEMOGLOBIN CONCENTR. 34.2 g/dL (32.4-36.7); MEAN CELL VOLUME 90.5 fL (81.5-99.8); MEAN PLATELET VOLUME 8.8 fL (8.7-11.7); PLATELET CLUMPS FLAG 0 (0-99); PLATELET COUNT 178 10^3/uL (150-400); RED BLOOD CELL COUNT 3.49 10^6/uL (4.18-5.33); RED CELL DISTRIBUTION WIDTH 13.1 % (11.5-15.2)
[2016-12-01 05:52] LABS: INR 1.14 (0.83-1.16); PROTIME(PATIENT) 14.5 SEC (12.0-15.0)
[2016-12-01 06:07] LABS: ALANINE AMINOTRANSFERASE 28 IU/L (9-52); ALBUMIN 2.9 g/dL (3.5-5.0); ALKALINE PHOSPHATASE 49 IU/L (38-126); ANION GAP 9 mEq/L (8-16); ASPARTATE AMINOTRANSFERASE 17 IU/L (14-46); BILIRUBIN,TOTAL 0.4 mg/dL (0.1-1.4); CALCIUM 8.7 mg/dL (8.5-10.4); CARBON DIOXIDE 23 mEq/l (22-31); CHLORIDE 113 mEq/L (97-110); CREATININE 0.8 mg/dL (0.6-1.0); GLOMERULAR FILTRATION RATE > 60; GLUCOSE 103 mg/dL (70-100); POTASSIUM 3.6 mEq/L (3.5-5.2); SODIUM 145 mEq/L (134-144); TOTAL PROTEIN 5.5 g/dL (6.3-8.2)
[2016-12-01] MEDS: ARIPiprazole 2 MG TAB PO SCH (09:26)
[2016-12-01] MEDS: BENZTROPINE MESYLATE 1 MG TAB PO SCH ×2 (09:26→21:25)
[2016-12-01] MEDS: PARoxetine HCL 20 MG TAB PO SCH (09:26)
[2016-12-01] MEDS: SENNOSIDES/DOCUSATE SODIUM TAB PO SCH ×2 (09:26→21:25)
[2016-12-01] MEDS: CLOTRIMAZOLE 1% 15 GM CRTUBE TP SCH ×2 (09:27→21:24)
[2016-12-01] MEDS: FLUCONAZOLE 150 MG TAB PO SCH (09:27)
[2016-12-01] MEDS: ENOXAPARIN 40 MG/0.4 ML SYR SC SCH (09:27)
[2016-12-01] MEDS: PSYLLIUM HUSK PO SCH (09:28)
[2016-12-01] MEDS: NYSTATIN POWDER 15 GM BTL TP SCH ×2 (09:28→21:25)
[2016-12-01] MEDS: NS 1,000 ML IV SCH (10:18)
[2016-12-01] MEDS: LORazepam 0.5 MG TAB PO PRN ×2 (11:46→17:06)
--- NOTE | 2016-12-01 16:17 | HOSPPROG ---
Hospitalist Progress Note Assessment/Plan: 65-year-old female presents emergency room with fall and confusion. This is my 1st encounter with the patient, chart reviewed. Patient reviewed with counseling case manager. # acute encephalopathy Etiology is unclear No signs of acute infectious process Continue to evaluate Patient has had multiple episodes acute encephalopathy in the past # hypothyroidism TSH is low Continue to hold thyroid replacement May be causing some acute encephalopathy # history of MS no acute signs of exacerbation at this time Last MRI of the brain was in 2016 Consider Neurology consult if patient does not improve # chronic psychiatric disorders Psychiatric consult has been ordered Await for further evaluation and recommendations Patient has been at multiple psychiatric facilities in the past # disposition Unclear at this time given patient's encephalopathy Continue inpatient of evaluation and monitoring Spoke with brother Neymar and gave him an update Reviewed with case management Patient may require placement at time of disposition Continue to monitor this with supportive management in the hospital Subjective: Up in the bed. States she feels mildly nauseous. Speech is difficult. Denies any specific pain. Objective: Vital Signs Temp Pulse Resp BP Pulse Ox 36.9 C 92 16 129/73 H 94 12/01/16 15:55 12/01/16 15:55 12/01/16 15:55 12/01/16 15:55 12/01/16 15:55 Laboratory Results 12/01/16 04:59 12/01/16 04:59 11/30/16 12/01/16 12/02/16 05:59 05:59 05:59 Intake Total 2103 1000 Balance 2103 1000 PT 14.5 SEC (12.0-15.0) 12/01/16 04:59 INR 1.14 (0.83-1.16) 12/01/16 04:59 - Physical Exam Constitutional: no apparent distress, appears nourished, not in pain Eyes: PERRL, anicteric sclera, EOMI Ears, Nose, Mouth, Throat: moist mucous membranes, hearing normal, ears appear normal Cardiovascular: No JVD, No tachycardia, No edema Respiratory: no respiratory distress, no rales or rhonchi, reduced air movement Gastrointestinal: No tenderness, No ascites, No guarding Skin: warm, normal color, No erythema Musculoskeletal: normal joint ROM, no joint effusions, generalized weakness Neurologic: No AAOx3 Psychiatric: anxious, poor insight, poor judgement, poor memory, No thought process linear ICD10 Worksheet Patient Problems: Problems Problem Status Diagnosed Altered mental status, unspecified Acute Frequent falls Acute Generalized weakness Acute History of falling Acute History of multiple sclerosis Acute Hyperthyroidism determined by thyroid function test Acute Urinary tract infection Acute Dehydration Acute Failure to thrive Acute Hypothyroid Acute
[2016-12-01] MEDS: PSYLLIUM METAMUCIL 1 PKT PO SCH (21:25)
[2016-12-01] MEDS: OLANZapine DISINTEGR 5 MG TAB PO SCH (21:25)
[2016-12-01] MEDS: traZODone 100 MG TAB PO SCH (21:25)
[2016-12-01] MEDS: ZOLPIDEM TARTRATE 5 MG TAB PO SCH (21:25)
[2016-12-02] MEDS: TOBRAMYCIN/DEXAMETH 5 ML OPHT.BTL EACHEYE SCH ×6 (01:32→20:14)
[2016-12-02] MEDS: SENNOSIDES/DOCUSATE SODIUM TAB PO SCH ×2 (09:45→20:13)
[2016-12-02] MEDS: BENZTROPINE MESYLATE 1 MG TAB PO SCH ×2 (09:45→20:13)
[2016-12-02] MEDS: ARIPiprazole 2 MG TAB PO SCH (09:45)
[2016-12-02] MEDS: PARoxetine HCL 20 MG TAB PO SCH (09:45)
[2016-12-02] MEDS: NYSTATIN POWDER 15 GM BTL TP SCH ×2 (09:46→20:14)
[2016-12-02] MEDS: ENOXAPARIN 40 MG/0.4 ML SYR SC SCH (09:48)
[2016-12-02] MEDS: CLOTRIMAZOLE 1% 15 GM CRTUBE TP SCH ×2 (09:48→20:14)
[2016-12-02] MEDS: PSYLLIUM METAMUCIL 1 PKT PO SCH ×2 (10:20→20:14)
[2016-12-02] MEDS: FLUCONAZOLE 150 MG TAB PO SCH (10:21)
--- NOTE | 2016-12-02 14:53 | HOSPPROG ---
Hospitalist Progress Note Assessment/Plan: 65-year-old female presents emergency room with fall and confusion. This is my 1st encounter with the patient, chart reviewed. # acute encephalopathy * I have cared for this patient in the past. She appears close to her baseline * she was seen in March of this year by Psychiatry it was noted that she has major depressive disorder with psychotic problems as well as cognitive deficits * she had been cared in a [facility] unit in the past * I spoke with Psychiatry/Dr. Olivares. She will review the patient's chart * during my interview the patient is not decisional, she is unable to reason why she is in the hospital. And does not understand the long-term plans of her care. # hypothyroidism * TSH is low * hold thyroid replacement # history of MS /no acute signs of exacerbation at this time * Last MRI of the brain was in 2015 * has had multiple consults with Neurology * patient is able to walk with a walker * this is her baseline # chronic psychiatric disorders * Psychiatric consult has been ordered * she has agoraphobia, PTSD, history of benzo and opiate dependence. Also has a long history of failure to thrive * on multiple medications / will will appreciate Psychiatry evaluating these to see if we can optimize her care #. failure to thrive * she did poorly when she went back to her own home and was falling * I believe that the patient needs a long-term facility for safety #. DVT prophylaxis * Lovenox # disposition * pending * have asked ethics to evaluate her for being decisional * she has a brother who hopefully will be her proxy Subjective: Jeannine has no complaints. Says her appetite is improving Objective: Vital Signs Temp Pulse Resp BP Pulse Ox 36.9 C 114 H 16 124/68 H 92 12/02/16 07:30 12/02/16 07:30 12/02/16 07:30 12/02/16 07:30 12/02/16 07:30 Laboratory Results 12/01/16 04:59 12/01/16 04:59 12/01/16 12/02/16 12/03/16 05:59 05:59 05:59 Intake Total 2103 1600 Output Total 650 Balance 2103 950 PT 14.5 SEC (12.0-15.0) 12/01/16 04:59 INR 1.14 (0.83-1.16) 12/01/16 04:59 - Physical Exam Constitutional: not in pain, other ( thin) Eyes: PERRL Ears, Nose, Mouth, Throat: hearing normal Cardiovascular: regular rate and rhythym Respiratory: no respiratory distress Gastrointestinal: normoactive bowel sounds Skin: warm Musculoskeletal: no muscle tenderness, generalized weakness Neurologic: other ( she is alert to herself to place and who the president is. She is not oriented to the year) Psychiatric: interacting appropriately, poor insight, poor judgement, poor memory ICD10 Worksheet Patient Problems: Problems Problem Status Diagnosed Altered mental status, unspecified Acute Frequent falls Acute Generalized weakness Acute History of falling Acute History of multiple sclerosis Acute Hyperthyroidism determined by thyroid function test Acute Urinary tract infection Acute Dehydration Acute Failure to thrive Acute Hypothyroid Acute
[2016-12-02] MEDS: ZOLPIDEM TARTRATE 5 MG TAB PO SCH (20:13)
[2016-12-02] MEDS: traZODone 100 MG TAB PO SCH (20:14)
[2016-12-02] MEDS: OLANZapine DISINTEGR 5 MG TAB PO SCH (20:14)
[2016-12-03] MEDS: TOBRAMYCIN/DEXAMETH 5 ML OPHT.BTL EACHEYE SCH ×6 (03:12→20:39)
[2016-12-03] MEDS: PSYLLIUM METAMUCIL 1 PKT PO SCH ×2 (09:25→20:37)
[2016-12-03] MEDS: ENOXAPARIN 40 MG/0.4 ML SYR SC SCH (09:25)
[2016-12-03] MEDS: SENNOSIDES/DOCUSATE SODIUM TAB PO SCH ×2 (09:26→20:37)
[2016-12-03] MEDS: IBUPROFEN 200 MG TAB PO PRN (09:26)
[2016-12-03] MEDS: BENZTROPINE MESYLATE 1 MG TAB PO SCH ×2 (09:26→20:37)
[2016-12-03] MEDS: ARIPiprazole 2 MG TAB PO SCH (09:26)
[2016-12-03] MEDS: PARoxetine HCL 20 MG TAB PO SCH (09:26)
[2016-12-03] MEDS: NYSTATIN POWDER 15 GM BTL TP SCH ×2 (09:27→20:38)
[2016-12-03] MEDS: FLUCONAZOLE 150 MG TAB PO SCH (09:30)
[2016-12-03] MEDS: CLOTRIMAZOLE 1% 15 GM CRTUBE TP SCH ×2 (09:30→20:38)
--- NOTE | 2016-12-03 10:53 | PDCONSULT ---
Gold Stamper Note: ETHICS CONSULTATION Decisional Capacity Evaluation Reason for consult: an ethics consultation was ordered for patient, Landon Coy, to assist in assessing her decisional capacity in regard to choosing to her disposition. She would prefer to be discharged back to her home despite recommendations that she likely needs more support which could be provided instead at a halfway facility. Recommendation: in this ethics consultants assessment, Landon appears to possess decisional capacity in regard to her disposition. Summary of Assessment: Patient has had multiple/repeated admissions to [facility], along with multiple falls. While she was found to have hyperthyroidism during this admission (free T4 = 3.67-3.11, normal range = 0.59-2.19; TSH = < 0.015) this is not clinically apparent with patient having slow speech and reportedly functioning at her baseline mental status. 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 Psychiatry consultation has been ordered with patient carrying diagnoses of PTSD , depression and anxiety per the EHR. Landon was able to offer the following rationale for her preference to NOT be discharged to a halfway facility: she doesn't want to have "less privacy and less autonomy." She doesn't want to be "assigned to a bed in longterm and then have trouble re-entering the world." When I asked how she would address concerns about the safety of her continuing to live in her apartment alone with repeated falling, she explained that she now has a life alert bracelet and that she has arranged for [employer] to deliver to her 5 days per week and that they know she answers the door and that if she were to fail to come to the door, they would/could alert another agency. When I asked about the possibility that she might fall hitting her head and be rendered unconscious, potentially not being found for 1+ days - what would be her thoughts about that scenario - she recognized that her brother, BERTRAM and niece would have severe regret wishing they would have checked in with her. I then asked if she could live with that potential scenario and would want to still go home rather than to a longterm. And she acknowledged that this was a difficult decision recognizing that it is question she should have probably asked herself some time ago. She volunteered that she does not want to "be at the level where decision are made for you." She was fatigued by my interview and seemed to understand that her care team was concerned with her not being here (at the hospital), but also not going home. She appears to feel the weight of this decision, knowing what she would prefer, but also capable able to appreciate the potential consequences for her family if there were to be a bad outcome as a result of her decision. Landon was able to demonstrate that today, she has: The ability to communicate a choice The ability to understand the relevant information The ability to appreciate a situation and its consequences The ability to reason rationally Follow up: spoke with hospitalist PHOTO INTERN, Jessi Alvarez and LEXY Villalpando regarding above assessment. Decision Maker Determination Reason for consult: an ethics consultation was ordered for patient Landon Coy to assist in establishing a proxy decision maker. Patient's care team has raised question of whether patient possesses decisional capacity (please see above). Interested Persons: patient has identified her brother as the person most appropriate to make decisons on her behalf, he then clarified he is her only living relative. Proxy Decision Maker: the interested person(s) collectively agree(d) that Neymar Coy knows the patient and the patients wishes regarding treatment and should act as the patients healthcare proxy. He has has been informed of his responsibilities as a healthcare proxy and has agreed to serve as the patients healthcare proxy. Additionally, he indicated he completed formal [facility] paperwork in the past and that Landon likely has a copy of this somewhere in her home. He will attempt to locate his copy over the next couple days. Neymar then provided the following additional background information: Landon spent 4-6 weeks at [facility] until MarchApril 2016. This was apparently a general nursing facility who was also able to handle "some" less severe mental functioning disabilities and Landon's mental functioning improved dramatically while she was there. She would likely be reluctant to go back there however, as there was either another resident or staff person who started stalking her. 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 He could see where we might see her currently at her "hospitalized" baseline, and that she is nowhere near where she was mentally when she had to go to [place], but she did show up at a neighbor's house having wandered out into the cold. I explained psychiatry would be seeing the patient and that she would be having a PT/OT evaluation and that her thyroid medication was being held. He suggested re-sending urinalysis as Landon had reported dysuria prior to her hospitalization and he was surprised by the negative results. Neymar has previously talked with Landon about the possibility of moving to an assisted living facility and she apparently has a boyfriend (also in his 70s) who lives 42 miles away and could also benefit from assisted living support. We talked of how her mental status may continue to fluctuate and eventually deteriorate and while he was encouraged by her improved mental functioning today (yesterday she apparently kept referring to "we" and mentioned "the other hostages," he recognizes he may need to CONVINCE her to go to an assisted living facility and/or ultimately decide on her behalf should she deteriorate. In the meantime, he has assembled robust care in her home including: Shannen English , clinical psychologist who sees Landon weekly, Dr. Edith Foster from [facility] (along with Hailey Moseley, PHOTO INTERN) who visit weekly to bi- weekly, Cathy Cherry homecare RN and Rain Mayo to provide aides for hygiene. Landon noted that [facility] have started filling her rainbow colored pill box. Follow up: this recommendation was reported to the weekend pillowcase turner and covering Hospitalist. We appreciate the opportunity to participate in this patient's care. Please page ethics as needed at [phone].
--- NOTE | 2016-12-03 11:27 | HOSPPROG ---
Hospitalist Progress Note Assessment/Plan: 65-year-old female presents emergency room with fall and confusion. # acute encephalopathy * she is much clearer today/ alert, conversant and appropriate * I have cared for this patient in the past. She appears close to her baseline * she was seen in March of this year by Psychiatry it was noted that she has major depressive disorder with psychotic problems as well as cognitive deficits * DR Olivares with psychiatry to further evaluate # hypothyroidism * TSH is low * hold thyroid replacement # history of MS /no acute signs of exacerbation at this time * Last MRI of the brain was in 2015 * has had multiple consults with Neurology * patient is able to walk with a walker/evaluated her today/ she is ambulating well in room and hallways w walker * this is her baseline # chronic psychiatric disorders * Psychiatric consult has been ordered * she has agoraphobia, PTSD, history of benzo and opiate dependence. Also has a long history of failure to thrive * on multiple medications / will will appreciate Psychiatry evaluating these to see if we can optimize her care #. failure to thrive * she did poorly when she went back to her own home and was falling * she told the ethics consult, she has a life alert at home and will use it if she should fall again * I'm concerned about her insight to her care #. DVT prophylaxis * Lovenox # disposition * pending/appreciate Ethics seeing her today/ she is decisional/ likely to make poor decisions. Subjective: Landon is feeling well/ is able to ambulate well in the room w walker , has no c/o pain. Objective: Vital Signs Temp Pulse Resp BP Pulse Ox 36.8 C 100 14 108/59 L 92 12/03/16 08:00 12/03/16 08:00 12/03/16 08:00 12/03/16 08:00 12/03/16 08:00 Laboratory Results 12/01/16 04:59 12/01/16 04:59 12/02/16 12/03/16 12/04/16 05:59 05:59 05:59 Intake Total 1600 700 Output Total 650 Balance 950 700 PT 14.5 SEC (12.0-15.0) 12/01/16 04:59 INR 1.14 (0.83-1.16) 12/01/16 04:59 - Physical Exam Constitutional: no apparent distress, other (thin) Eyes: PERRL Ears, Nose, Mouth, Throat: hearing normal Respiratory: no respiratory distress Gastrointestinal: normoactive bowel sounds Skin: warm Musculoskeletal: generalized weakness Neurologic: other (alert and oriented to herself, not to place or situation) Psychiatric: poor insight, poor judgement, poor memory ICD10 Worksheet Patient Problems: Problems Problem Status Diagnosed Altered mental status, unspecified Acute Frequent falls Acute Generalized weakness Acute History of falling Acute History of multiple sclerosis Acute Hyperthyroidism determined by thyroid function test Acute Urinary tract infection Acute Dehydration Acute Failure to thrive Acute Hypothyroid Acute
[2016-12-03] MEDS: traZODone 100 MG TAB PO SCH (20:36)
[2016-12-03] MEDS: ZOLPIDEM TARTRATE 5 MG TAB PO SCH (20:36)
[2016-12-03] MEDS: OLANZapine DISINTEGR 5 MG TAB PO SCH (20:37)
[2016-12-04] MEDS: TOBRAMYCIN/DEXAMETH 5 ML OPHT.BTL EACHEYE SCH ×6 (03:18→22:14)
[2016-12-04] MEDS: ARIPiprazole 2 MG TAB PO SCH (08:12)
[2016-12-04] MEDS: PARoxetine HCL 20 MG TAB PO SCH (08:12)
[2016-12-04] MEDS: BENZTROPINE MESYLATE 1 MG TAB PO SCH ×2 (08:12→20:00)
[2016-12-04] MEDS: PSYLLIUM METAMUCIL 1 PKT PO SCH ×2 (08:13→20:02)
[2016-12-04] MEDS: SENNOSIDES/DOCUSATE SODIUM TAB PO SCH ×2 (08:13→20:00)
[2016-12-04] MEDS: ENOXAPARIN 40 MG/0.4 ML SYR SC SCH (08:15)
[2016-12-04] MEDS: CLOTRIMAZOLE 1% 15 GM CRTUBE TP SCH ×2 (08:21→20:03)
[2016-12-04] MEDS: NYSTATIN POWDER 15 GM BTL TP SCH ×2 (08:27→20:03)
[2016-12-04] MEDS: IBUPROFEN 200 MG TAB PO PRN ×2 (13:17→19:58)
--- NOTE | 2016-12-04 14:42 | HOSPPROG ---
Hospitalist Progress Note Assessment/Plan: 65-year-old female presents emergency room with fall and confusion. # acute encephalopathy * she is much clearer today/ alert, conversant and appropriate * I have cared for this patient in the past. She is at her baseline * she was seen in March of this year by Psychiatry it was noted that she has major depressive disorder with psychotic problems as well as cognitive deficits * Dr Olivares with psychiatry to further evaluate/ hopefully today or tomorrow/ I have left a message. * urinalysis is stable # hypothyroidism * TSH is low * hold thyroid replacement # history of MS /no acute signs of exacerbation at this time * Last MRI of the brain was in 2016 * has had multiple consults with Neurology * patient is able to walk with a walker * this is her baseline # chronic psychiatric disorders * Psychiatric consult has been ordered * she has agoraphobia, PTSD, history of benzo and opiate dependence. Also has a long history of failure to thrive * on multiple medications / will will appreciate Psychiatry evaluating these to see if we can optimize her care #. failure to thrive * she did poorly when she went back to her own home and was falling * she told the ethics consult, she has a life alert at home and will use it if she should fall again * I'm concerned about her insight to her care/ when I asked her if she would wear her life alert, she said "sometimes". When I asked her if she fell down on the ground, she isn't sure what she would do. Her brother lives out of state ([place]) * CM spoke with her home care/ she had a pill box, but there was concern she wasn't taking her medications appropriately/ they were in the process of getting a locked box. #. DVT prophylaxis * Lovenox # disposition * pending/I still am concerned about her decisional capacity/ she is lucid and conversant, but doesn't have insight on her medications, what to do if she falls , states she isn't clear about what she would do should she fall. CM to look into more care for her/ she would do best in [place]. Subjective: Landon is feeling well. Objective: Vital Signs Temp Pulse Resp BP Pulse Ox 36.9 C 80 16 118/65 90 L 12/04/16 07:28 12/04/16 07:28 12/04/16 07:28 12/04/16 07:28 12/04/16 07:28 Laboratory Results 12/01/16 04:59 12/01/16 04:59 12/03/16 12/04/16 12/05/16 05:59 05:59 05:59 Intake Total 700 1100 900 Balance 700 1100 900 PT 14.5 SEC (12.0-15.0) 12/01/16 04:59 INR 1.14 (0.83-1.16) 12/01/16 04:59 - Physical Exam Constitutional: other (thin) Eyes: PERRL Ears, Nose, Mouth, Throat: hearing normal Respiratory: no respiratory distress Gastrointestinal: normoactive bowel sounds Skin: warm, No normal color (pale) Musculoskeletal: generalized weakness Neurologic: AAOx3 Psychiatric: interacting appropriately, poor insight, poor judgement ICD10 Worksheet Patient Problems: Problems Problem Status Diagnosed Altered mental status, unspecified Acute Frequent falls Acute Generalized weakness Acute History of falling Acute History of multiple sclerosis Acute Hyperthyroidism determined by thyroid function test Acute Urinary tract infection Acute Dehydration Acute Failure to thrive Acute Hypothyroid Acute
[2016-12-04] MEDS: ACETAMINOPHEN 325 MG TAB PO PRN ×2 (17:06→23:27)
[2016-12-04] MEDS: traZODone 100 MG TAB PO SCH (20:00)
[2016-12-04] MEDS: OLANZapine DISINTEGR 5 MG TAB PO SCH (20:01)
[2016-12-04] MEDS: ZOLPIDEM TARTRATE 5 MG TAB PO SCH (20:01)
[2016-12-05] MEDS: TOBRAMYCIN/DEXAMETH 5 ML OPHT.BTL EACHEYE SCH ×6 (03:00→21:30)
[2016-12-05] MEDS: BENZTROPINE MESYLATE 1 MG TAB PO SCH ×2 (09:48→21:26)
[2016-12-05] MEDS: PARoxetine HCL 20 MG TAB PO SCH (09:49)
[2016-12-05] MEDS: ENOXAPARIN 40 MG/0.4 ML SYR SC SCH (09:49)
[2016-12-05] MEDS: ARIPiprazole 2 MG TAB PO SCH (09:49)
[2016-12-05] MEDS: CLOTRIMAZOLE 1% 15 GM CRTUBE TP SCH (09:54)
[2016-12-05] MEDS: NYSTATIN POWDER 15 GM BTL TP SCH (09:54)
[2016-12-05] MEDS: PSYLLIUM METAMUCIL 1 PKT PO SCH ×2 (09:55→21:27)
[2016-12-05] MEDS: SENNOSIDES/DOCUSATE SODIUM TAB PO SCH ×2 (09:55→21:26)
[2016-12-05] MEDS: IBUPROFEN 200 MG TAB PO PRN (12:31)
--- NOTE | 2016-12-05 15:11 | HOSPPROG ---
Hospitalist Progress Note Assessment/Plan: 65-year-old female presents emergency room with fall and confusion. # acute encephalopathy * she is much clearer today/ alert, conversant and appropriate * I have cared for this patient in the past. She is at her baseline * she was seen in March of this year by Psychiatry it was noted that she has major depressive disorder with psychotic problems as well as cognitive deficits * Dr Olivares with psychiatry to see today * urinalysis is stable # hypothyroidism * TSH is low * hold thyroid replacement # history of MS /no acute signs of exacerbation at this time * Last MRI of the brain was in 2016 * has had multiple consults with Neurology * patient is able to walk with a walker * this is her baseline # chronic psychiatric disorders * Psychiatric consult has been ordered * she has agoraphobia, PTSD, history of benzo and opiate dependence. Also has a long history of failure to thrive * on multiple medications / will will appreciate Psychiatry evaluating these to see if we can optimize her care #. failure to thrive * she did poorly when she went back to her own home and was falling * I'm concerned about her insight to her care/ when I asked her if she would wear her life alert, she said "sometimes". When I asked her if she fell down on the ground, she isn't sure what she would do. Her brother lives out of state ([place]) * CM spoke with her home care/ she had a pill box, but there was concern she wasn't taking her medications appropriately/ they were in the process of getting a locked box. #. DVT prophylaxis * Lovenox # disposition * reviewed her care with Ethics/ the ethics team and myself do not believe Landon has insight on how to care for herself/ she is still unable to tell me what she would do if she were to fall/ she stares blankly. When asked what she has done in the past, she says she doesn't know. Will await psychiatry to see/ she is on multiple medications that could be contributing to her falling, but has been prescribed these by her psychiatrist. Subjective: Landon has no complaints/ is concerned that many people are talking to her about her. Objective: Vital Signs Temp Pulse Resp BP Pulse Ox 36.5 C 68 16 126/54 H 94 12/05/16 07:17 12/05/16 07:17 12/05/16 07:17 12/05/16 07:17 12/05/16 07:17 Laboratory Results 12/01/16 04:59 12/01/16 04:59 12/04/16 12/05/16 12/06/16 05:59 05:59 05:59 Intake Total 1100 2750 550 Output Total 1 Balance 1100 2749 550 PT 14.5 SEC (12.0-15.0) 12/01/16 04:59 INR 1.14 (0.83-1.16) 12/01/16 04:59 - Physical Exam Constitutional: chronically ill appearing, other (thin) Eyes: PERRL Ears, Nose, Mouth, Throat: hearing normal Respiratory: no respiratory distress Skin: warm Musculoskeletal: generalized weakness Neurologic: AAOx3 Psychiatric: interacting appropriately, poor insight, poor judgement ICD10 Worksheet Patient Problems: Problems Problem Status Diagnosed Altered mental status, unspecified Acute Frequent falls Acute Generalized weakness Acute History of falling Acute History of multiple sclerosis Acute Hyperthyroidism determined by thyroid function test Acute Urinary tract infection Acute Dehydration Acute Failure to thrive Acute Hypothyroid Acute
[2016-12-05] MEDS ORDERED: CLOTRIMAZOLE 1% 15 GM CRTUBE TP PRN (15:31)
[2016-12-05] MEDS ORDERED: NYSTATIN POWDER 15 GM BTL TP PRN (15:32)
[2016-12-05] MEDS: CYANO/VITAMIN B12 1000 MCG TAB PO SCH (18:46)
[2016-12-05] MEDS: traZODone 100 MG TAB PO SCH (21:24)
[2016-12-05] MEDS: ZOLPIDEM TARTRATE 5 MG TAB PO SCH (21:24)
[2016-12-05] MEDS: OLANZapine DISINTEGR 5 MG TAB PO SCH (21:27)
--- NOTE | 2016-12-05 22:45 | SOAPPROG ---
SOAP Progress Note Assessment/Plan: Assessment: Plan: Objective: Vital Signs Temp Pulse Resp BP Pulse Ox 36.4 C 101 H 16 146/80 H 93 12/05/16 15:58 12/05/16 15:58 12/05/16 15:58 12/05/16 15:58 12/05/16 15:58 Laboratory Results 12/01/16 04:59 12/01/16 04:59 12/04/16 12/05/16 12/06/16 05:59 05:59 05:59 Intake Total 1100 2750 0 Output Total 1 Balance 1100 2749 0 PT 14.5 SEC (12.0-15.0) 12/01/16 04:59 INR 1.14 (0.83-1.16) 12/01/16 04:59 - Time Spent With Patient Time Spent With Patient: 30 min - Pending Discharge Pending Discharge Within 24 Hours: No Pending Discharge Within 48 Hours: No ICD10 Worksheet Patient Problems: Problems Problem Status Diagnosed Altered mental status, unspecified Acute Frequent falls Acute Generalized weakness Acute History of falling Acute History of multiple sclerosis Acute Hyperthyroidism determined by thyroid function test Acute Urinary tract infection Acute Dehydration Acute Failure to thrive Acute Hypothyroid Acute
[2016-12-06 06:52] LABS: ANION GAP 9 mEq/L (8-16); CALCIUM 9.6 mg/dL (8.5-10.4); CARBON DIOXIDE 27 mEq/l (22-31); CHLORIDE 107 mEq/L (97-110); CREATININE 0.8 mg/dL (0.6-1.0); GLOMERULAR FILTRATION RATE > 60; GLUCOSE 99 mg/dL (70-100); POTASSIUM 4.2 mEq/L (3.5-5.2); SODIUM 143 mEq/L (134-144)
[2016-12-06 06:55] LABS: % IMMATURE GRANULYOCYTES 0.2 % (0.0-1.1); ABSOLUTE IMMATURE GRANULOCYTES 0.01 10^3/uL (0.00-0.10); ADD DIFF? NO; ADD MORPH? NO; ADD SCAN? NO; ATYPICAL LYMPHOCYTE FLAG 0 (0-99); FRAGMENT RBC FLAG 20 (0-99); HEMATOCRIT 37.7 % (38.0-47.0); HEMOGLOBIN 12.8 g/dL (12.6-16.3); LEFT SHIFT FLG 0 (0-99); LIPEMIA HEMOLYSIS FLAG 90 (0-99); MEAN CELL HEMOGLOBIN 30.5 pg (27.9-34.1); MEAN CELL VOLUME 89.8 fL (81.5-99.8); MEAN PLATELET VOLUME 8.4 fL (8.7-11.7); PLATELET CLUMPS FLAG 0 (0-99); PLATELET COUNT 332 10^3/uL (150-400)
[2016-12-06] MEDS: PARoxetine HCL 20 MG TAB PO SCH (09:38)
[2016-12-06] MEDS: BENZTROPINE MESYLATE 1 MG TAB PO SCH ×2 (09:39→22:39)
[2016-12-06] MEDS: PSYLLIUM METAMUCIL 1 PKT PO SCH ×3 (09:39→22:45)
[2016-12-06] MEDS: CYANO/VITAMIN B12 1000 MCG TAB PO SCH (09:39)
[2016-12-06] MEDS: SENNOSIDES/DOCUSATE SODIUM TAB PO SCH ×2 (09:39→22:38)
[2016-12-06] MEDS: ENOXAPARIN 40 MG/0.4 ML SYR SC SCH (09:45)
[2016-12-06] MEDS: TOBRAMYCIN/DEXAMETH 5 ML OPHT.BTL EACHEYE SCH ×6 (09:46→23:00)
[2016-12-06] MEDS: CLOTRIMAZOLE 1% 15 GM CRTUBE TP SCH (09:49)
--- NOTE | 2016-12-06 13:57 | HOSPPROG ---
Hospitalist Progress Note Assessment/Plan: 65-year-old female presents emergency room with fall and confusion. # acute encephalopathy/concern for dementia (neurocognitive disorder) * I have cared for this patient in the past. She is at her baseline * she was seen in March of this year by Psychiatry it was noted that she has major depressive disorder with psychotic problems as well as cognitive deficits * Dr Olivares with psychiatry evaluated Landon today and yesterday/ recommendations are to stop Abilify, Ambien and Clozaril. * urinalysis is stable # hypothyroidism * TSH is low * hold thyroid replacement # history of MS /no acute signs of exacerbation at this time * Last MRI of the brain was in 2016 * has had multiple consults with Neurology * patient is able to walk with a walker * this is her baseline # chronic psychiatric disorders * appreciate Dr Olivares/ Beth and Abilify have been stopped * she has agoraphobia, PTSD, history of benzo and opiate dependence. Also has a long history of failure to thrive #. failure to thrive * she did poorly when she went back to her own home and was falling * I'm concerned about her insight to her care/ when I asked her if she would wear her life alert, she said "sometimes". When I asked her if she fell down on the ground, she isn't sure what she would do. Her brother lives out of state ([place]) * CM spoke with her home care/ she had a pill box, but there was concern she wasn't taking her medications appropriately/ they were in the process of getting a locked box. #. DVT prophylaxis * Lovenox # disposition * pending/ not safe to return to her own home unless she were to have 24 hour care. CM looking into BM. Landon wants to go home and is worried about this not occurring. She doesn't have insight to her care. Reviewed her care with Dr Olivares. She needs close f/u with psychiatry and neurology. Subjective: Landon isn't hungry today. Objective: Vital Signs Temp Pulse Resp BP Pulse Ox 37.1 C 64 15 140/78 H 94 12/06/16 08:00 12/06/16 08:00 12/06/16 08:00 12/06/16 08:00 12/06/16 08:00 Laboratory Results 12/06/16 05:31 12/06/16 05:31 12/05/16 12/06/16 12/07/16 05:59 05:59 05:59 Intake Total 2750 2049 Output Total 1 150 Balance 2749 1900 PT 14.5 SEC (12.0-15.0) 12/01/16 04:59 INR 1.14 (0.83-1.16) 12/01/16 04:59 - Physical Exam Constitutional: no apparent distress, other (thin) Eyes: PERRL Ears, Nose, Mouth, Throat: hearing normal Respiratory: no respiratory distress Skin: warm Musculoskeletal: generalized weakness (walks well in the room with the walker) Neurologic: AAOx3 (but this varies) Psychiatric: anxious, poor insight, poor judgement, poor memory ICD10 Worksheet Patient Problems: Problems Problem Status Onset Altered mental status, unspecified Acute History of falling Acute Hyperthyroidism determined by thyroid function test Acute Dehydration Acute Failure to thrive Acute Frequent falls Acute Generalized weakness Acute History of multiple sclerosis Acute Hypothyroid Acute Urinary tract infection Acute
[2016-12-06] MEDS: ACETAMINOPHEN 325 MG TAB PO PRN (16:03)
[2016-12-06] MEDS: IBUPROFEN 200 MG TAB PO PRN (18:49)
[2016-12-06] MEDS: LORazepam 0.5 MG TAB PO PRN (22:38)
[2016-12-06] MEDS: traZODone 100 MG TAB PO SCH (22:43)
[2016-12-06] MEDS: OLANZapine DISINTEGR 5 MG TAB PO SCH (22:43)
[2016-12-06] MEDS: ZOLPIDEM TARTRATE 5 MG TAB PO SCH ×2 (22:44→23:59)
[2016-12-07] MEDS: ZOLPIDEM TARTRATE 5 MG TAB PO SCH (00:03)
[2016-12-07] MEDS: TOBRAMYCIN/DEXAMETH 5 ML OPHT.BTL EACHEYE SCH ×4 (02:00→14:49)
[2016-12-07 08:47] VITALS: TEMP 98.1
[2016-12-07] MEDS: PSYLLIUM METAMUCIL 1 PKT PO SCH (08:53)
[2016-12-07] MEDS: CYANO/VITAMIN B12 1000 MCG TAB PO SCH (08:54)
[2016-12-07] MEDS: BENZTROPINE MESYLATE 1 MG TAB PO SCH (08:54)
[2016-12-07] MEDS: PARoxetine HCL 20 MG TAB PO SCH (08:54)
[2016-12-07] MEDS: SENNOSIDES/DOCUSATE SODIUM TAB PO SCH (08:55)
[2016-12-07] MEDS: ENOXAPARIN 40 MG/0.4 ML SYR SC SCH (08:56)
[2016-12-07 11:08] VITALS: BP 116/68; PULSE 105; RESP 18; O2SAT 93
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
--- NOTE | 2016-12-07 13:42 | PDIAF ---
- Diagnosis Diagnosis: AMS Code Status: Full Code - Medication Management Discharge Medications: Medications to Continue on Transfer Benztropine Mesylate [Cogentin (*)] 1 mg PO BID 11/01/16 [Last Taken 11/30/16] Clotrimazole 1% [Lotrimin 1%] 1 leonid TP BID 11/01/16 [Last Taken Unknown] LORazepam [Ativan (*)] 0.5 mg PO QID PRN 11/01/16 [Last Taken Unknown] Nystatin [Nyamyc] 1 leonid TP BID 11/01/16 [Last Taken Unknown] PARoxetine HCL [Paxil 20mg (*)] 20 mg PO DAILY 11/01/16 [Last Taken 11/30/16] Tobramycin/Dexameth [Tobradex opht drops (*)] 1 - 2 drops EACHEYE Q4 11/01/16 [ Last Taken Unknown] ZOLPIDEM TARTRATE [Ambien CR 12.5 mg] 12.5 mg PO HS 11/01/16 [Last Taken Unknown ] FEXOFENADINE HCL 180 mg PO DAILY PRN 11/30/16 [Last Taken Unknown] Ibuprofen [Motrin (*)] 400 mg PO Q4H PRN 11/30/16 [Last Taken Unknown] Psyllium Husk [Metamucil] 2 cap PO BID 11/30/16 [Last Taken Unknown] Sennosides/Docusate Sodium [SENEXON-S TABLET] 2 each PO BID 11/30/16 [Last Taken Unknown] traMADol [Ultram 50 mg (*)] 50 mg PO Q8H PRN 11/30/16 [Last Taken Unknown] traZODone [traZODONE 100MG (*)] 100 mg PO HS 11/30/16 [Last Taken Unknown] Acetaminophen [Tylenol 325mg (*)] 650 mg PO Q4HRS PRN #0 tab 12/07/16 [Last Taken Unknown] Cyanocobalamin [Vitamin B12 (*)] 1,000 mcg PO DAILY #0 tab 12/07/16 [Last Taken Unknown] OLANZapine DISINTEGR [ZyPREXA ZYDIS (*)] 5 mg PO HS #0 tab 12/07/16 [Last Taken Unknown] Discharge Medications: Refer to the Discharge Home Medication list for PRN reason. PICC Care - Routine: N/A - Orders Services needed: Registered Nurse, Physical Therapy, Occupational Therapy - Labs/Radiology Other Lab Name, Date and Time: TSH 4 weeks - Follow Up Care Current Providers and Referrals: Patient,NotPresent [Unknown] - As per Instructions
--- NOTE | 2016-12-07 16:38 | HOSPPROG ---
Hospitalist Progress Note Assessment/Plan: 65-year-old female presents emergency room with fall and confusion. # acute encephalopathy/concern for dementia (neurocognitive disorder) * I have cared for this patient in the past. She is at her baseline * she was seen in March of this year by Psychiatry it was noted that she has major depressive disorder with psychotic problems as well as cognitive deficits * Dr Olivares with psychiatry evaluated Landon today and yesterday/ recommendations are to stop Abilify, Ambien and Clozaril. * urinalysis is stable # hypothyroidism * TSH is low * hold thyroid replacement # history of MS /no acute signs of exacerbation at this time * Last MRI of the brain was in 2016 * has had multiple consults with Neurology * patient is able to walk with a walker * this is her baseline # chronic psychiatric disorders * appreciate Dr Olivares/ Beth and Abilify have been stopped * she has agoraphobia, PTSD, history of benzo and opiate dependence. Also has a long history of failure to thrive #. failure to thrive * she did poorly when she went back to her own home and was falling * I'm concerned about her insight to her care/ when I asked her if she would wear her life alert, she said "sometimes". When I asked her if she fell down on the ground, she isn't sure what she would do. Her brother lives out of state ([place]) * CM spoke with her home care/ she had a pill box, but there was concern she wasn't taking her medications appropriately/ they were in the process of getting a locked box. #. DVT prophylaxis * Lovenox # disposition * pending/ not safe to return to her own home unless she were to have 24 hour care. CM looking into . Landon wants to go home and is worried about this not occurring. She doesn't have insight to her care. Reviewed her care with Dr Olivares. She needs close f/u with psychiatry and neurology. * Discharged to but pt refusing to go. Reviewed with CM. Subjective: Feels fine. Confusion. Objective: Vital Signs Temp Pulse Resp BP Pulse Ox 36.7 C 105 H 18 116/68 93 12/07/16 11:07 12/07/16 11:07 12/07/16 11:07 12/07/16 11:07 12/07/16 11:07 Laboratory Results 12/06/16 05:31 12/06/16 05:31 12/06/16 12/07/16 12/08/16 05:59 05:59 05:59 Intake Total 2050 1500 Output Total 150 Balance 1900 1500 PT 14.5 SEC (12.0-15.0) 12/01/16 04:59 INR 1.14 (0.83-1.16) 12/01/16 04:59 - Physical Exam Constitutional: appears nourished, chronically ill appearing Eyes: PERRL, anicteric sclera Ears, Nose, Mouth, Throat: moist mucous membranes, hearing normal Cardiovascular: No JVD, No edema Respiratory: no respiratory distress, reduced air movement Gastrointestinal: No tenderness, No ascites Skin: warm, normal color Musculoskeletal: normal joint ROM, generalized weakness Neurologic: No AAOx3 Psychiatric: not anxious, poor insight, poor judgement, poor memory ICD10 Worksheet Patient Problems: Problems Problem Status Onset Urinary tract infection Acute Generalized weakness Acute Failure to thrive Acute Hypothyroid Acute Dehydration Acute Frequent falls Acute History of multiple sclerosis Acute History of falling Acute Altered mental status, unspecified Acute Hyperthyroidism determined by thyroid function test Acute
--- NOTE | 2016-12-08 12:32 | GDS ---
[f rep st] DISCHARGE SUMMARY DISCHARGE DIAGNOSES: 1. Acute encephalopathy. 2. Hypothyroidism. 3. History of multiple sclerosis. 4. Chronic psychiatric disorders. 5. Failure to thrive. CONSULTATIONS: 1. Psychiatry. 2. Ethics. STUDIES AND PROCEDURES DONE: CT of the head. HOSPITAL COURSE: 1. The patient is a 65-year-old female, who presented to the emergency room with falls and confusio n. She was evaluated and diagnosed with acute encephalopathy. The etiology of this is unclear; how ever, it is concerning for dementia in combination with chronic psychiatric disorders. During this hospital course, the patient was evaluated by Dr. Olivares of Psychiatry, who made medication recommen dations. The patient did have ethics consultation during this hospitalization as well and was deeme d to not have decisional capacity. It is not felt that she is safe to live independently any longer at this point, and requires alf facility rehabilitation and long-term care likely. 2. Hypothyroidism. During this hospital course, the patient's TSH was low. We have held her thyro id replacement, and she will have this followed and evaluated in the outpatient setting. 3. History of MS with no signs of acute exacerbation. This can be followed outside the hospital, b ut no further intervention is required at this time. 4. Chronic psychiatric disorders. Again, the patient's medications have been adjusted during this hospital course. She has been evaluated by Psychiatry. She will require outpatient psychiatry and medication management. 5. Failure to thrive. The patient will require 24 hour assistance and care at this time, and will be discharged to [facility]. DISPOSITION: The patient will be discharged to [facility] for further therapies and rehabilitati on. There are no pending studies. DISCHARGE MEDICATIONS: Please refer to EMR form. FOLLOWUP: Will be with Psychiatry, as well as her primary care physician. I spent greater than 35 minutes in the care, coordination, and management of this patient's disposit ion. /[id number]/MODL
== END 2016-12-07 16:44 | DRG 72 ==
LOC: EDUNIT# → F3N 18:04 → F1N 12-06 18:35
PROVIDERS: ADMIT Student in an Organized Health Care Education/Training Program; ATTEND Student in an Organized Health Care Education/Training Program
DX: G93.49 Other encephalopathy (principal); F32.9 Major depressive disorder, single episode, unspecified; F41.8 Other specified anxiety disorders; F40.00 Agoraphobia, unspecified; R29.6 Repeated falls; F43.10 Post-traumatic stress disorder, unspecified; G35 Multiple sclerosis; R62.7 Adult failure to thrive; M79.7 Fibromyalgia; E03.9 Hypothyroidism, unspecified; K21.9 Gastro-esophageal reflux disease without esophagitis; R32 Unspecified urinary incontinence; R56.9 Unspecified convulsions
CPT/HCPCS: 84480-90; 84481-90; 92523-GN; 97116-GP; 97161-GP; 97165-GO; 97535-GO; G8978-GP-CI; G8979-GP-CI; G8987-GO-CK; G8988-GO-CI; G9165-GN-CK; G9166-GN-CK; J1650

== ENCOUNTER 2017-01-20 13:50 | Emergency (ER) | payer OTHER, MEDICAID ==
[2017-01-20 14:00] VITALS: BP 128/62; PULSE 78; RESP 16; TEMP 98.2; O2SAT 98
[2017-01-20 14:29] LABS: % IMMATURE GRANULYOCYTES 0.1 % (0.0-1.1); ABSOLUTE IMMATURE GRANULOCYTES 0.01 10^3/uL (0.00-0.10); ADD DIFF? NO; ADD MORPH? NO; ADD SCAN? NO; ATYPICAL LYMPHOCYTE FLAG 40 (0-99); FRAGMENT RBC FLAG 0 (0-99); HEMATOCRIT 37.3 % (38.0-47.0); HEMOGLOBIN 12.2 g/dL (12.6-16.3); LEFT SHIFT FLG 0 (0-99); LIPEMIA HEMOLYSIS FLAG 80 (0-99); MEAN CELL HEMOGLOBIN 29.8 pg (27.9-34.1); MEAN CELL HEMOGLOBIN CONCENTR. 32.7 g/dL (32.4-36.7); MEAN PLATELET VOLUME 8.5 fL (8.7-11.7); PLATELET CLUMPS FLAG 0 (0-99); PLATELET COUNT 254 10^3/uL (150-400); RED CELL DISTRIBUTION WIDTH 13.2 % (11.5-15.2)
--- NOTE | 2017-01-20 14:44 | EDPHY ---
H & P Stated Complaint: BLOOD DRAW Time Seen by Provider: 01/20/17 14:02 HPI/ROS: CHIEF COMPLAINT: Sent to ED for screening laboratory testing to facilitate placement in long-term care facility HISTORY OF PRESENT ILLNESS: Patient is sent to the ED to undergo laboratory testing to facilitate placement into a new care facility. The patient has a history of multiple sclerosis as well as underlying psychiatric illness. The patient denies any acute medical complaints. She denies any change to her medication. The patient denies any history of fall or trauma. She specifically denies headache, chest pain, abdominal pain, rash or dysuria. The patient does have a history of chronic pain from fibromyalgia. The patient also has a history of PTSD. The patient reportedly has been compliant with her typical outpatient medications. REVIEW OF SYSTEMS: A comprehensive 10 point review of systems is otherwise negative aside from elements mentioned in the history of present illness. Source: Patient Exam Limitations: No limitations - Personal History Current Tetanus Diphtheria and Acellular Pertussis (TDAP): Yes Tetanus Vaccine Date: 2014 - Medical/Surgical History Hx Asthma: Yes Hx Chronic Respiratory Disease: No Hx Diabetes: No Hx Cardiac Disease: No Hx Renal Disease: No Hx Cirrhosis: No Hx Alcoholism: No Hx HIV/AIDS: No Hx Splenectomy or Spleen Trauma: No Other PMH: fibromyalgia, MS, ibs; depression; anxiety; hypothyhroidism; ptsd; acid reflux; rhinitis, urine incontinence, seizure - Social History Smoking Status: Never smoked - Physical Exam Exam: General Appearance: Thin female, no acute distress Eyes: Pupils equal and round no pallor or injection ENT, Mouth: Mucous membranes moist Respiratory: There are no retractions, lungs are clear to auscultation Cardiovascular: Regular rate and rhythm Gastrointestinal: Abdomen is soft and nontender, no masses, bowel sounds normal Neurological: A&O, normal motor function, normal sensory exam, normal cranial nerves Skin: Warm and dry, no rashes Musculoskeletal: Neck is supple nontender Extremities: symmetrical, full range of motion Constitutional: Initial Vital Signs Temperature (C) 36.8 C 01/20/17 13:57 Heart Rate 78 01/20/17 13:57 Respiratory Rate 16 01/20/17 13:57 Blood Pressure 128/62 H 01/20/17 13:57 O2 Sat (%) 98 01/20/17 13:57 O2 Delivery Mode Room Air Allergies/Adverse Reactions: buspirone HCl [From BuSpar] Allergy (Mild, Verified 01/20/17 13:54) rash on chest morphine Allergy (Mild, Verified 01/20/17 13:54) legs/feet swell oxycodone [Oxycodone] Allergy (Mild, Verified 01/20/17 13:54) feet/legs swell propoxyphene HCl [From Darvon] Allergy (Mild, Verified 01/20/17 13:54) GI upset propranolol [Propranolol] Allergy (Mild, Verified 01/20/17 13:54) "headache and heart pounding" Sulfa (Sulfonamide Antibiotics) [Sulfa(Sulfonamide Antibiotics)] Allergy (Mild, Verified 01/20/17 13:54) GI upset ivp dye Allergy (Severe, Uncoded 01/20/17 13:54) rash/dyspnea Home Medications: Medication Instructions Recorded Benztropine Mesylate [Cogentin (*)] 1 mg PO BID 11/01/16 Clotrimazole 1% [Lotrimin 1%] 1 leonid TP BID 11/01/16 LORazepam [Ativan (*)] 0.5 mg PO QID PRN 11/01/16 Nystatin [Nyamyc] 1 leonid TP BID 11/01/16 PARoxetine HCL [Paxil 20mg (*)] 20 mg PO DAILY 11/01/16 Tobramycin/Dexameth [Tobradex opht 1 - 2 drops EACHEYE Q4 11/01/16 drops (*)] ZOLPIDEM TARTRATE [Ambien CR 12.5 12.5 mg PO HS 11/01/16 mg] FEXOFENADINE HCL 180 mg PO DAILY PRN 11/30/16 Ibuprofen [Motrin (*)] 400 mg PO Q4H PRN 11/30/16 Psyllium Husk [Metamucil] 2 cap PO BID 11/30/16 Sennosides/Docusate Sodium 2 each PO BID 11/30/16 [SENEXON-S TABLET] traMADol [Ultram 50 mg (*)] 50 mg PO Q8H PRN 11/30/16 traZODone [traZODONE 100MG (*)] 100 mg PO HS 11/30/16 Acetaminophen [Tylenol 325mg (*)] 650 mg PO Q4HRS PRN #0 tab 12/07/16 Cyanocobalamin [Vitamin B12 (*)] 1,000 mcg PO DAILY #0 tab 12/07/16 OLANZapine DISINTEGR [ZyPREXA 5 mg PO HS #0 tab 12/07/16 ZYDIS (*)] Medical Decision Making ED Course/Re-evaluation: The patient has a nonfocal neurologic examination. We have ordered a CBC and comprehensive metabolic panel. The patient's medical screening and laboratory studies are within normal limits. She will be discharged from our facility with this information. - Data Points Laboratory Results: Laboratory Results 01/20/17 14:20 01/20/17 14:20 01/20/17 01/20/17 01/20/17 14:20 14:20 14:09 WBC 6.72 10^3/uL 10^3/uL (3.80-9.50) RBC 4.10 10^6/uL L 10^6/uL (4.18-5.33) Hgb 12.2 g/dL L g/dL (12.6-16.3) Hct 37.3 % L % (38.0-47.0) MCV 91.0 fL fL (81.5-99.8) MCH 29.8 pg pg (27.9-34.1) MCHC 32.7 g/dL g/dL (32.4-36.7) RDW 13.2 % % (11.5-15.2) Plt Count 254 10^3/uL 10^3/uL (150-400) MPV 8.5 fL L fL (8.7-11.7) Neut % (Auto) 74.9 % H % (39.3-74.2) Lymph % (Auto) 20.1 % % (15.0-45.0) [place] % (Auto) 3.4 % L % (4.5-13.0) Eos % (Auto) 1.2 % % (0.6-7.6) Baso % (Auto) 0.3 % % (0.3-1.7) Nucleat RBC Rel Count 0.0 % % (0.0-0.2) Absolute Neuts (auto) 5.03 10^3/uL 10^3/uL (1.70-6.50) Absolute Lymphs (auto) 1.35 10^3/uL 10^3/uL (1.00-3.00) Absolute Monos (auto) 0.23 10^3/uL L 10^3/uL (0.30-0.80) Absolute Eos (auto) 0.08 10^3/uL 10^3/uL (0.03-0.40) Absolute Basos (auto) 0.02 10^3/uL 10^3/uL (0.02-0.10) Absolute Nucleated RBC 0.00 10^3/uL 10^3/uL (0-0.01) Immature Gran % 0.1 % % (0.0-1.1) Immature Gran # 0.01 10^3/uL 10^3/uL (0.00-0.10) Sodium 142 mEq/L mEq/L (134-144) Potassium 4.1 mEq/L mEq/L (3.5-5.2) Chloride 102 mEq/L mEq/L (97-110) Carbon Dioxide 27 mEq/l mEq/l (22-31) Anion Gap 13 mEq/L mEq/L (8-16) BUN 17 mg/dL mg/dL (7-23) Creatinine 0.9 mg/dL mg/dL (0.6-1.0) Estimated GFR > 60 Glucose 88 mg/dL mg/dL (70-100) Calcium 9.2 mg/dL mg/dL (8.5-10.4) Total Bilirubin 0.5 mg/dL mg/dL (0.1-1.4) Conjugated Bilirubin 0.4 mg/dL mg/dL (0.0-0.5) Unconjugated Bilirubin 0.1 mg/dL mg/dL (0.0-1.1) AST 31 IU/L IU/L (14-46) ALT 30 IU/L IU/L (9-52) Alkaline Phosphatase 74 IU/L IU/L (38-126) Total Protein 7.7 g/dL g/dL (6.3-8.2) Albumin 4.1 g/dL g/dL (3.5-5.0) Departure - Departure Disposition: Home, Routine, Self-Care Clinical Impression: Generalized weakness Condition: Good Instructions: Self-Care Measures with a Chronic Disease (ED) Additional Instructions: Please follow up as scheduled with Dr. Sandhu Referrals: KI CAMACHO [Primary Care Provider] - As per Instructions
[2017-01-20 14:45] LABS: ANION GAP 13 mEq/L (8-16); CALCIUM 9.2 mg/dL (8.5-10.4); CARBON DIOXIDE 27 mEq/l (22-31); CHLORIDE 102 mEq/L (97-110); CREATININE 0.9 mg/dL (0.6-1.0); GLOMERULAR FILTRATION RATE > 60; GLUCOSE 88 mg/dL (70-100); POTASSIUM 4.1 mEq/L (3.5-5.2); SODIUM 142 mEq/L (134-144)
[2017-01-20 14:58] LABS: ALBUMIN 4.1 g/dL (3.5-5.0); BILIRUBIN,TOTAL 0.5 mg/dL (0.1-1.4); BILIRUBIN-CONJUGATED 0.4 mg/dL (0.0-0.5); BILIRUBIN-UNCONJUGATED 0.1 mg/dL (0.0-1.1); TOTAL PROTEIN 7.7 g/dL (6.3-8.2)
== END 2017-01-20 15:20 | disposition home or self-care (01) ==
DX: R53.1 Weakness (principal); J45.909 Unspecified asthma, uncomplicated

== ENCOUNTER 2017-04-25 13:59 | Emergency (ER) | payer OTHER, MEDICAID ==
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
[2017-04-25 14:17] VITALS: RESP 14
[2017-04-25 16:27] VITALS: BP 133/58; PULSE 72; TEMP 98.6; O2SAT 95
== END 2017-04-25 16:25 | disposition home or self-care (01) ==
LOC: EDUNIT#
DX: S29.9XXA Unspecified injury of thorax, initial encounter (principal); J45.909 Unspecified asthma, uncomplicated; Y08.89XA Assault by other specified means, initial encounter; Y92.129 Unspecified place in nursing home as the place of occurrence of the external cause

== ENCOUNTER 2017-06-06 23:50 | Emergency (ER) | payer OTHER, MEDICAID ==
[2017-06-07 00:15] VITALS: RESP 16; TEMP 97.9; O2SAT 97
[2017-06-07] MEDS ORDERED: HYDROCODONE/APAP 5/325 TAB PO ONE (01:57)
[2017-06-07] MEDS ORDERED: AMOXICILLIN/CLAVULANATE POT 875/125 MG TAB PO ONE (02:47)
--- NOTE | 2017-06-07 03:48 | EDPHY ---
H & P Stated Complaint: LOWER JAW RIGHT SIDE TOOTH PAIN 2 DAYS Time Seen by Provider: 06/07/17 00:04 HPI/ROS: Chief Complaint: Facial pain HPI: 66-year-old female presenting with left-sided facial pain for the last 2 days. She has been taking tramadol and her facility with no relief. Patient states that hurts in her upper and lower teeth on the left. No new trauma. Does hurt to chew. No fevers or chills. Does feel like some congestion in her face and some runny nose. No fevers or chills. No neck pain. No difficulty swallowing. No difficulty breathing. No ear pain. ROS: 10 point Review of Systems is negative except as noted in the HPI. Social History: No smoking, no alcohol, no recreational drug use Family History: non-contributory Physical Exam: Gen: Awake, Alert, No Distress HEENT: She has severe tenderness to percussion of her left maxillary sinus. Nose: no rhinorrhea Eyes: PERRLA, EOMI Mouth: Moist mucosa very poor dentition, no tenderness with temporomandibular joint palpation. Poor dentition. Tenderness to percussion oral left lower molar Neck: Supple, no JVD Chest: nontender, lungs clear to auscultation Heart: S1, S2 normal, no murmur Abd: Soft, non-tender, no guarding Back: no CVA tenderness, no midline tenderness Ext: no edema, non-tender Skin: no rash Neuro: CN II-XII intact, Sensation grossly intact, Strength 5/5 in bilateral upper and lower extremities - Personal History Current Tetanus/Diphtheria Vaccine: Yes Current Tetanus Diphtheria and Acellular Pertussis (TDAP): Yes Tetanus Vaccine Date: 2014 - Medical/Surgical History Hx Asthma: Yes Hx Chronic Respiratory Disease: No Hx Diabetes: No Hx Cardiac Disease: No Hx Renal Disease: No Hx Cirrhosis: No Hx Alcoholism: No Hx HIV/AIDS: No Hx Splenectomy or Spleen Trauma: No Other PMH: fibromyalgia, MS, ibs; depression; anxiety; hypothyhroidism; ptsd; acid reflux; rhinitis, urine incontinence, seizure - Social History Smoking Status: Never smoked Constitutional: Initial Vital Signs Temperature (C) 36.6 C 06/06/17 23:52 Heart Rate 68 06/06/17 23:52 Respiratory Rate 16 06/06/17 23:52 Blood Pressure 147/80 H 06/06/17 23:52 O2 Sat (%) 97 06/06/17 23:52 O2 Delivery Mode Room Air Allergies/Adverse Reactions: buspirone HCl [From BuSpar] Allergy (Mild, Verified 06/07/17 00:15) rash on chest morphine Allergy (Mild, Verified 06/07/17 00:15) legs/feet swell oxycodone [Oxycodone] Allergy (Mild, Verified 06/07/17 00:15) feet/legs swell propoxyphene HCl [From Darvon] Allergy (Mild, Verified 06/07/17 00:15) GI upset propranolol [Propranolol] Allergy (Mild, Verified 06/07/17 00:15) "headache and heart pounding" Sulfa (Sulfonamide Antibiotics) [Sulfa(Sulfonamide Antibiotics)] Allergy (Mild, Verified 06/07/17 00:15) GI upset ivp dye Allergy (Severe, Uncoded 06/07/17 00:15) rash/dyspnea Home Medications: Medication Instructions Recorded Benztropine Mesylate [Cogentin (*)] 1 mg PO BID 11/01/16 Clotrimazole 1% [Lotrimin 1%] 1 leonid TP BID 11/01/16 LORazepam [Ativan (*)] 0.5 mg PO QID PRN 11/01/16 Nystatin [Nyamyc] 1 leonid TP BID 11/01/16 PARoxetine HCL [Paxil 20mg (*)] 20 mg PO DAILY 11/01/16 Tobramycin/Dexameth [Tobradex opht 1 - 2 drops EACHEYE Q4 11/01/16 drops (*)] ZOLPIDEM TARTRATE [Ambien CR 12.5 12.5 mg PO HS 11/01/16 mg] FEXOFENADINE HCL 180 mg PO DAILY PRN 11/30/16 Ibuprofen [Motrin (*)] 400 mg PO Q4H PRN 11/30/16 Psyllium Husk [Metamucil] 2 cap PO BID 11/30/16 Sennosides/Docusate Sodium 2 each PO BID 11/30/16 [SENEXON-S TABLET] traMADol [Ultram 50 mg (*)] 50 mg PO Q8H PRN 11/30/16 traZODone [traZODONE 100MG (*)] 100 mg PO HS 11/30/16 Acetaminophen [Tylenol 325mg (*)] 650 mg PO Q4HRS PRN #0 tab 12/07/16 Cyanocobalamin [Vitamin B12 (*)] 1,000 mcg PO DAILY #0 tab 12/07/16 OLANZapine DISINTEGR [ZyPREXA 5 mg PO HS #0 tab 12/07/16 ZYDIS (*)] Amoxicillin/Clavulanate Pot 875 mg PO BID #20 tab 06/07/17 [Augmentin 875 MG TAB (*)] Medical Decision Making - Diagnostics Imaging Results: CT scan shows moderate maxillary and ethmoid sinusitis, stable white matter disease changes and atrophy per Dr. Medina. Imaging: Discussed imaging studies w/ granite block paver Radiologist ED Course/Re-evaluation: Patient had alveolar block and attempted P what was initially thought of his lower dental pain. This provided no relief. She then was complaining of more maxillary sinus pain. CT scan confirms maxillary sinus disease. She was given Augmentin. Pain is improved here. Will discharge with follow-up with primary care physician, continuing on antibiotics. - Data Points Medications Given: Discontinued Medications Hydrocodone Bitart/Acetaminophen ([place] 5/325) 2 tab PO EDNOW ONE Stop: 06/07/17 01:58 Last Admin: 06/07/17 02:00 Dose: 2 tab Amoxicillin/Clavulanate Potassium (Augmentin 875mg) 875 mg PO EDNOW ONE PRN Reason: Protocol Stop: 06/07/17 02:48 Last Admin: 06/07/17 03:05 Dose: 875 mg Departure - Departure Disposition: Home, Routine, Self-Care Clinical Impression: Acute sinusitis Condition: Good Instructions: Sinusitis (ED) Additional Instructions: Please take your full course of antibiotics. Return to the emergency depart for increasing pain, fevers, chills, or any other concerns. Follow up with primary care physician in 2-3 days for re-evaluation. Referrals: TED LOPEZ [Primary Care Provider] - As per Instructions Prescriptions: Amoxicillin/Clavulanate Pot [Augmentin 875 MG TAB (*)] 875 mg PO BID #20 tab
[2017-06-07] MEDS ORDERED: traMADol 50 MG TAB PO ONE (03:52)
[2017-06-07 06:23] VITALS: BP 118/76; PULSE 89
== END 2017-06-07 06:22 | disposition home or self-care (01) ==
LOC: EDUNIT#
DX: J01.90 Acute sinusitis, unspecified (principal); J45.909 Unspecified asthma, uncomplicated

== ENCOUNTER 2017-06-10 22:03 | Emergency (ER) | payer OTHER, MEDICAID ==
[2017-06-10] MEDS ORDERED: HYDROCODONE/APAP 5/325 TAB PO ONE (22:09)
--- NOTE | 2017-06-10 22:13 | EDPHY ---
H & P HPI/ROS: HPI CHIEF COMPLAINT: Dental pain HISTORY OF PRESENT ILLNESS: This patient very pleasant 58-year-old female, she lives at [facility], history of MS fibromyalgia, very poor dentition, recently seen here in the emergency room for dental pain. At that time she had a CT scan shows sinus disease. She was placed on Augmentin. She presents back from [facility] and she states her pain is not well controlled. She is requesting something stronger than ibuprofen Tylenol. She does wear a fentanyl patch. She denies any new complaints. She states she has had this dental pain for 10 days. She is due to see an oral surgeon this week. No fever. She is currently on Augmentin. Past Medical History: Fibromyalgia, MS, poor dentition, chronic pain fentanyl patch. Past Surgical History: No recent surgery Social History: Lives at [facility] denies alcohol drugs. Family History: Noncontributory. ROS REVIEW OF SYSTEMS: A comprehensive 10 point review of systems is otherwise negative aside from elements mentioned in the history of present illness. Exam Constitutional appears well nontoxic, triage nursing summary reviewed, vital signs reviewed, awake/alert. Eyes normal conjunctivae and sclera, EOMI, PERRLA. HENT oropharynx no gumline abscess however takes significant amount of dental decay and poor dentition. No signs of Pop's. normal inspection, atraumatic , moist mucus membranes, no epistaxis, neck supple/ no meningismus, no raccoon eyes. Respiratory clear to auscultation bilaterally, normal breath sounds, no respiratory distress, no wheezing. Cardiovascular rate normal, regular rhythm, no murmur, no edema, distal pulses normal. Gastrointestinal soft, non-tender, no rebound, no guarding, normal bowel sounds, no distension, no pulsatile mass. Genitourinary no CVA tenderness. Musculoskeletal no midline vertebral tenderness, full range of motion, no calf swelling, no tenderness of extremities, no meningismus, good pulses, neurovascularly intact. Skin pink, warm, & dry, no rash, skin atraumatic. Neurologic awake, alert and oriented x 3, AAOx3, moves all 4 extremities equally, motor intact, sensory intact, CN II-XII intact, normal cerebellar, normal vision, normal speech. Psychiatric normal mood/affect. Heme/Lymph/Immune no lymphadenopathy. Differential Diagnosis: Includes but is not limited to in a particular order significant dental decay, dental caries, apical abscess. Medical Decision Making: Plan for this patient hydrocodone dose here in emergency room for acute pain control. And a limited prescription for this. She understands she continue her Augmentin. Follow up with oral surgery this week. She appears well here no signs of significant infection. She is not septic. Vital signs are stable. Source: Patient, EMS - Personal History Tetanus Vaccine Date: 2014 - Medical/Surgical History Hx Asthma: Yes Hx Chronic Respiratory Disease: No Hx Diabetes: No Hx Cardiac Disease: No Hx Renal Disease: No Hx Cirrhosis: No Hx Alcoholism: No Hx HIV/AIDS: No Hx Splenectomy or Spleen Trauma: No Other PMH: fibromyalgia, MS, ibs; depression; anxiety; hypothyhroidism; ptsd; acid reflux; rhinitis, urine incontinence, seizure - Social History Smoking Status: Never smoked Allergies/Adverse Reactions: buspirone HCl [From BuSpar] Allergy (Mild, Verified 06/07/17 00:15) rash on chest morphine Allergy (Mild, Verified 06/07/17 00:15) legs/feet swell oxycodone [Oxycodone] Allergy (Mild, Verified 06/07/17 00:15) feet/legs swell propoxyphene HCl [From Darvon] Allergy (Mild, Verified 06/07/17 00:15) GI upset propranolol [Propranolol] Allergy (Mild, Verified 06/07/17 00:15) "headache and heart pounding" Sulfa (Sulfonamide Antibiotics) [Sulfa(Sulfonamide Antibiotics)] Allergy (Mild, Verified 06/07/17 00:15) GI upset ivp dye Allergy (Severe, Uncoded 06/07/17 00:15) rash/dyspnea Home Medications: Medication Instructions Recorded Benztropine Mesylate [Cogentin (*)] 1 mg PO BID 11/01/16 Clotrimazole 1% [Lotrimin 1%] 1 leonid TP BID 11/01/16 LORazepam [Ativan (*)] 0.5 mg PO QID PRN 11/01/16 Nystatin [Nyamyc] 1 leonid TP BID 11/01/16 PARoxetine HCL [Paxil 20mg (*)] 20 mg PO DAILY 11/01/16 Tobramycin/Dexameth [Tobradex opht 1 - 2 drops EACHEYE Q4 11/01/16 drops (*)] ZOLPIDEM TARTRATE [Ambien CR 12.5 12.5 mg PO HS 11/01/16 mg] FEXOFENADINE HCL 180 mg PO DAILY PRN 11/30/16 Ibuprofen [Motrin (*)] 400 mg PO Q4H PRN 11/30/16 Psyllium Husk [Metamucil] 2 cap PO BID 11/30/16 Sennosides/Docusate Sodium 2 each PO BID 11/30/16 [SENEXON-S TABLET] traMADol [Ultram 50 mg (*)] 50 mg PO Q8H PRN 11/30/16 traZODone [traZODONE 100MG (*)] 100 mg PO HS 11/30/16 Acetaminophen [Tylenol 325mg (*)] 650 mg PO Q4HRS PRN #0 tab 12/07/16 Cyanocobalamin [Vitamin B12 (*)] 1,000 mcg PO DAILY #0 tab 12/07/16 OLANZapine DISINTEGR [ZyPREXA 5 mg PO HS #0 tab 12/07/16 ZYDIS (*)] Amoxicillin/Clavulanate Pot 875 mg PO BID #20 tab 06/07/17 [Augmentin 875 MG TAB (*)] Hydrocodone/APAP 5/325 [[place] 1 - 2 tab PO Q4H PRN #10 tab 06/10/17 5/325] Departure - Departure Disposition: Home, Routine, Self-Care Clinical Impression: Pain, dental Condition: Good Instructions: Toothache (ED) Additional Instructions: 1.Please continue your Augmentin your previously prescribed. 2. Please follow up with oral surgeon this week. Referrals: TED LOPEZ [Primary Care Provider] - As per Instructions Prescriptions: Hydrocodone/APAP 5/325 [[place] 5/325] 1 - 2 tab PO Q4H PRN #10 tab PRN Reason: Pain, Moderate
[2017-06-10 22:15] VITALS: BP 113/52; PULSE 67; RESP 17; TEMP 99.3; O2SAT 97
== END 2017-06-10 23:33 | disposition home or self-care (01) ==
LOC: EDUNIT#
DX: K08.89 Other specified disorders of teeth and supporting structures (principal); J45.909 Unspecified asthma, uncomplicated

== ENCOUNTER 2018-03-19 19:03 | Emergency (ER) | payer OTHER, MEDICAID ==
[2018-03-19] MEDS ORDERED: LORazepam 1 MG TAB PO ONE ×2 (19:19→20:15)
--- NOTE | 2018-03-19 19:20 | EDPHY ---
H & P Time Seen by Provider: 03/19/18 19:03 HPI/ROS: CHIEF COMPLAINT: I need Solu-Medrol HISTORY OF PRESENT ILLNESS: This 67-year-old woman has a history of multiple sclerosis and was last admitted here in November for encephalopathy. At that point her discharge summary says that she was seen by ethics and Dr. Olivares of Psychiatry and it says that the patient"was deemed to not have decisional capacity." She presents today asking for high-dose IV steroids for which she says is multiple sclerosis flare up. She says she is having more difficulty walking and weakness in her legs. This is not associated with back pain or headache or urinary symptoms or fever or chills. She did have an argument with another resident at her living facility yesterday over sitting in the dining room and has been very anxious ever since. REVIEW OF SYSTEMS: Eye: no change in vision ENT: no sore throat Cardiac: no chest pain or syncope Pulmonary: no cough or SOB Abdomen: no vomiting, diarrhea, abdominal pain Musculoskeletal: No back or neck pain Skin: no rash Neuro: no headache Constitutional: no fever : no urinary symptoms A comprehensive 10 point review of systems is otherwise negative aside from elements mentioned in the history of present illness. PAST MEDICAL HISTORY: Admission H&P dated 11/30/2016 personally reviewed includes multiple sclerosis, seizure disorder, depression and agoraphobia and PTSD, hypothyroid, essential tremor, fibromyalgia, depression. Social history: Currently lives at [facility], no alcohol General Appearance: Alert and conversant, cooperative. Eyes: No scleral icterus. Pupils equal reactive extraocular motion intact. ENT, Mouth: Normal mucous membranes. Respiratory: Normal respiratory effort, breath sounds equal, lungs are clear to auscultation. Cardiovascular: Regular rate and rhythm. Gastrointestinal: Abdomen is soft and non tender. Neurological: Alert, face symmetric, normal motor 5/5 strength, and sensory to light touch in extremities. No pronator drift and normal [id number]. She does not really have much of a tremor at this time. Toes downgoing bilaterally and patellar reflexes 1+ symmetric. Speech fluent. Skin: Warm and dry, no rashes. Musculoskeletal: No peripheral edema. Psychiatric: Very anxious. Rapid speech. Emergency Department course/MDM: Patient does not appear to have objective neurologic deficit but is very anxious. She was easily able to get up off the ambulance gurney and transferred to the hospital bed by herself using all 4 extremities coordinated fashion. Oral Ativan, CBC chemistry, urinalysis. 1957: CBC reviewed, hematocrit is 32.4 and since October 2016 she has ranged between 31.6 and 37.7. WBC normal at 8.3. No evidence of UTI, she was able to get up and walk to the bathroom unassisted. 2014: Re-examined, is still very anxious. Additional 1 mg oral Ativan. I think this is much more likely than multiple sclerosis flare. Smoking Status: Never smoked Constitutional: Initial Vital Signs Temperature (C) 36.7 C 03/19/18 19:07 Heart Rate 93 03/19/18 19:07 Respiratory Rate 16 03/19/18 19:07 Blood Pressure 161/92 H 03/19/18 19:07 O2 Sat (%) 95 03/19/18 19:07 O2 Delivery Mode Room Air Allergies/Adverse Reactions: buspirone HCl [From BuSpar] Allergy (Mild, Verified 03/19/18 19:07) rash on chest morphine Allergy (Mild, Verified 03/19/18 19:07) legs/feet swell oxycodone [Oxycodone] Allergy (Mild, Verified 03/19/18 19:07) feet/legs swell propoxyphene HCl [From Darvon] Allergy (Mild, Verified 03/19/18 19:07) GI upset propranolol [Propranolol] Allergy (Mild, Verified 03/19/18 19:07) "headache and heart pounding" Sulfa (Sulfonamide Antibiotics) [Sulfa(Sulfonamide Antibiotics)] Allergy (Mild, Verified 03/19/18 19:07) GI upset ivp dye Allergy (Severe, Uncoded 03/19/18 19:07) rash/dyspnea Home Medications: Medication Instructions Recorded Benztropine Mesylate [Cogentin (*)] 1 mg PO BID 11/01/16 Clotrimazole 1% [Lotrimin 1%] 1 leonid TP BID 11/01/16 LORazepam [Ativan (*)] 0.5 mg PO QID PRN 11/01/16 Nystatin [Nyamyc] 1 leonid TP BID 11/01/16 PARoxetine HCL [Paxil 20mg (*)] 20 mg PO DAILY 11/01/16 Tobramycin/Dexameth [Tobradex opht 1 - 2 drops EACHEYE Q4 11/01/16 drops (*)] ZOLPIDEM TARTRATE [Ambien CR 12.5 12.5 mg PO HS 11/01/16 mg] FEXOFENADINE HCL 180 mg PO DAILY PRN 11/30/16 Ibuprofen [Motrin (*)] 400 mg PO Q4H PRN 11/30/16 Psyllium Husk [Metamucil] 2 cap PO BID 11/30/16 Sennosides/Docusate Sodium 2 each PO BID 11/30/16 [SENEXON-S TABLET] traMADol [Ultram 50 mg (*)] 50 mg PO Q8H PRN 11/30/16 traZODone [traZODONE 100MG (*)] 100 mg PO HS 11/30/16 Acetaminophen [Tylenol 325mg (*)] 650 mg PO Q4HRS PRN #0 tab 12/07/16 Cyanocobalamin [Vitamin B12 (*)] 1,000 mcg PO DAILY #0 tab 12/07/16 OLANZapine DISINTEGR [ZyPREXA 5 mg PO HS #0 tab 12/07/16 ZYDIS (*)] Amoxicillin/Clavulanate Pot 875 mg PO BID #20 tab 06/07/17 [Augmentin 875 MG TAB (*)] Hydrocodone/APAP 5/325 [[place] 1 - 2 tab PO Q4H PRN #10 tab 06/10/17 5/325] Medical Decision Making Differential Diagnosis: Differential considered including but not limited to UTI, multiple sclerosis, stroke, seizure, anxiety. - Data Points Laboratory Results: Laboratory Results 03/19/18 19:48 03/19/18 19:48 03/19/18 03/19/18 03/19/18 20:03 19:48 19:48 WBC 8.30 10^3/uL 10^3/uL (3.80-9.50) RBC 4.24 10^6/uL 10^6/uL (4.18-5.33) Hgb 10.3 g/dL L g/dL (12.6-16.3) Hct 32.4 % L % (38.0-47.0) MCV 76.4 fL L fL (81.5-99.8) MCH 24.3 pg L pg (27.9-34.1) MCHC 31.8 g/dL L g/dL (32.4-36.7) RDW 16.0 % H % (11.5-15.2) Plt Count 312 10^3/uL 10^3/uL (150-400) MPV 8.0 fL L fL (8.7-11.7) Neut % (Auto) 74.1 % % (39.3-74.2) Lymph % (Auto) 20.1 % % (15.0-45.0) Terrell % (Auto) 4.2 % L % (4.5-13.0) Eos % (Auto) 0.8 % % (0.6-7.6) Baso % (Auto) 0.4 % % (0.3-1.7) Nucleat RBC Rel Count 0.0 % % (0.0-0.2) Absolute Neuts (auto) 6.15 10^3/uL 10^3/uL (1.70-6.50) Absolute Lymphs (auto) 1.67 10^3/uL 10^3/uL (1.00-3.00) Absolute Monos (auto) 0.35 10^3/uL 10^3/uL (0.30-0.80) Absolute Eos (auto) 0.07 10^3/uL 10^3/uL (0.03-0.40) Absolute Basos (auto) 0.03 10^3/uL 10^3/uL (0.02-0.10) Absolute Nucleated RBC 0.00 10^3/uL 10^3/uL (0-0.01) Immature Gran % 0.4 % % (0.0-1.1) Immature Gran # 0.03 10^3/uL 10^3/uL (0.00-0.10) Sodium 141 mEq/L mEq/L (135-145) Potassium 3.9 mEq/L mEq/L (3.3-5.0) Chloride 106 mEq/L mEq/L (97-110) Carbon Dioxide 23 mEq/l mEq/l (22-31) Anion Gap 12 mEq/L mEq/L (8-16) BUN 20 mg/dL mg/dL (7-23) Creatinine 1.1 mg/dL H mg/dL (0.6-1.0) Estimated GFR 49 Glucose 111 mg/dL H mg/dL (70-100) Calcium 9.0 mg/dL mg/dL (8.5-10.4) Urine Color ANTONIO Urine Appearance CLEAR Urine pH 5.0 (5.0-7.5) Ur Specific [place] 1.011 (1.002-1.030) Urine Protein NEGATIVE (NEGATIVE) Urine Ketones NEGATIVE (NEGATIVE) Urine Blood 1+ H (NEGATIVE) Urine Nitrate NEGATIVE (NEGATIVE) Urine Bilirubin NEGATIVE (NEGATIVE) Urine Urobilinogen NEGATIVE EU EU (0.2-1.0) Ur Leukocyte Esterase NEGATIVE (NEGATIVE) Urine RBC 5-10 /hpf H /hpf (0-3) Urine WBC 1-3 /hpf /hpf (0-3) Ur Epithelial Cells TRACE /lpf /lpf (NONE-1+) Urine Glucose NEGATIVE (NEGATIVE) Medications Given: Discontinued Medications Lorazepam (Ativan) 1 mg PO EDNOW ONE Stop: 03/19/18 19:20 Last Admin: 03/19/18 19:37 Dose: 1 mg Lorazepam (Ativan) 1 mg PO EDNOW ONE Stop: 03/19/18 20:16 Last Admin: 03/19/18 20:18 Dose: 1 mg Departure - Departure Disposition: Home, Routine, Self-Care Clinical Impression: Anxiety Condition: Good Instructions: Anxiety (ED) Referrals: Patient,NotPresent [Unknown] - As per Instructions
[2018-03-19 19:56] LABS: PLATELET COUNT 312 10^3/uL (150-400)
[2018-03-19 20:45] VITALS: BP 132/73
== END 2018-03-19 20:43 | disposition home or self-care (01) ==
LOC: EDUNIT#
DX: F41.9 Anxiety disorder, unspecified (principal)

== ENCOUNTER → 2018-12-19 | Outpatient (CLI) | payer OTHER, MEDICAID | LOC: FCPNEURO 21:00 | PROVIDERS: ATTEND Student in an Organized Health Care Education/Training Program | DX: G47.33 Obstructive sleep apnea (adult) (pediatric) (principal) ==